=== PATIENT | male | born 1955 | race Caucasian/White ===

== ENCOUNTER 2020-07-14 17:26 | Emergency (ER) | payer OTHER ==
[~2020-07-14] VITALS: Ht 162.5 cm; Wt 88.5 kg
[2020-07-14 17:28] VITALS: BP 160/87
--- NOTE | 2020-07-14 17:30 | ED Lower Extremity ---
General Chief Complaint: Laceration Stated Complaint: LT FOOT LAC Source: patient Exam Limitations: no limitations History of Present Illness Date Seen by Provider: Jul 14, 2020 Time Seen by Provider: 17:30 Initial Comments 64 y/o male presents w (knife) puncture wound of left foot. He was fishing and a fillet knife fell and went through his shoe, puncturing his foot. States that he bled for awhile, now stopped. No other injury. Complain of pain w walking. Tetanus NOT UTD. Allergies and Home Medications Allergies Coded Allergies: No Known Drug Allergies (Unverified , 07/14/20) Home Medications Bacitracin/Polymyxin B Sulfate 28.3 Gm Oint...g., 28.3 GM TP BID Prescribed by: CARMEN WORKMNA on 07/14/201744 Clindamycin HCl 300 Mg Capsule, 300 MG PO TIDWM Prescribed by: CARMEN WORKMAN on 07/14/201744 Patient Home Medication List Home Medication List Reviewed: Yes Review of Systems Constitutional: no symptoms reported Musculoskeletal: No joint pain, No joint swelling, No muscle pain; other (pain left foot) Skin: see HPI, other (puncture wound foot) Psychiatric/Neurological: Denies Numbness, Denies Paresthesia, Denies Weakness Past Zfqznnw-Fpbjrl-Phdbbh Hx Past Med/Social Hx: Reviewed Nursing Past Med/Soc Hx Physical Exam Vital Signs Vital Signs - First Documented 07/14/20 17:28 Temp 37.0 Pulse 74 Resp 18 B/P (MAP) 160/87 (111) Pulse Ox 96 O2 Delivery Room Air Capillary Refill : Height, Weight, BMI Height: '" Weight: lbs. oz. kg; BMI Method: General Appearance: WD/WN, no apparent distress Feet: left foot abrasions/lacerations, left foot limited range of motion (2 to pain), left foot pain, left foot soft tissue tenderness, left foot swelling Neurologic/Psychiatric: alert, normal mood/affect Skin: normal color, warm/dry, other (1cm closed laceration, dorsum of foot without bleeding or DC. No concern of FB, knife removed intact. Small hematoma surrounding.) Progress/Results/Core Measures Results/Orders My Orders Orders - CARMEN WORKMAN DO Tetanus/Diphtheria Inj (Adult) (Tenivac (07/14/20 17:45) Bacitracin Ointment (Bacitracin Ointment (07/14/20 21:00) Medications Given in ED Current Medications Medications Dose Ordered Sig/Albin Route Start Time Stop Time Status Last Admin Dose Admin Tetanus/ Diphtheria Toxoids 0.5 ml ONCE ONCE IM 07/14/20 17:45 07/14/20 17:46 DC 07/14/20 17:42 0.5 ML Vital Signs/I&O 07/14/20 17:28 Temp 37.0 Pulse 74 Resp 18 B/P (MAP) 160/87 (111) Pulse Ox 96 O2 Delivery Room Air Progress Progress Note : Progress Note no need for suturing. Wound cleaned, irrigated and sterile dressing w abx ointment applied. Departure Impression Primary Impression: Laceration of foot, left Qualified Codes: S91.312A - Laceration without foreign body, left foot, initial encounter Disposition: HOME, SELF-CARE Condition: Improved Departure-Patient Inst. Decision time for Depature: 17:44 Patient Instructions: Wound Care Add. Discharge Instructions: See your PCP in 3 days if concern of infection or other problems All discharge instructions reviewed with patient and/or family. Voiced understanding. Scripts Bacitracin/Polymyxin B Sulfate (Polysporin Ointment) 28.3 Gm Oint...g. 28.3 GM TP BID, #1 TUBE Prov: CARMEN WORKMAN DO 07/14/20 Clindamycin HCl (Clindamycin HCl) 300 Mg Capsule 300 MG PO TIDWM, #15 CAP Prov: CARMEN WORKMAN DO 07/14/20 CARMEN WORKMAN DO Jul 14, 2020 17:30
[2020-07-14] MEDS ORDERED: CLIN300C12 PO (17:45)
[2020-07-14] MEDS ORDERED: TETANUS & DIPHTHERIA TOX,ADULT 0.5 ML (TENIVAC) IM ONE (17:45)
[2020-07-14] MEDS ORDERED: BACI28.35 TP (17:45)
[2020-07-14] MEDS ORDERED: BACITRACIN OINTMENT 28 GM TUBE TOP SCH (21:00)
== END 2020-07-14 17:50 | disposition home or self-care (01) ==
LOC: ER FS 17:29
DX: S91.312A Laceration without foreign body, left foot, initial encounter (principal); Z23 Encounter for immunization; W26.0XXA Contact with knife, initial encounter
CPT/HCPCS: 90714

== ENCOUNTER 2020-12-17 09:55 | Outpatient (CLI) | payer MEDICARE, OTHER ==
[~2020-12-17] VITALS: Ht 162.6 cm; Wt 88.0 kg
[~2020-12-17 09:55] MED LIST: BACI28.35 TP; CLIN-144 PO
[2020-12-17] MEDS ORDERED: ACETAMINOPHEN 500 MG TAB (TYLENOL) PO PRN (10:00)
[2020-12-17] MEDS ORDERED: diphenhydrAMINE 50 MG/ML INJ (BENADRYL) IV PRN (10:00)
[2020-12-17] MEDS ORDERED: EPINEPHrine INJECTION 1 MG/ML AMP IM PRN (10:00)
[2020-12-17] MEDS ORDERED: ONDANSETRON 4 MG/2 ML (SDV) Z0FRAN IV PRN (10:00)
[2020-12-17] MEDS ORDERED: CASIRIVIMAB/IMDEVIMAB 1,200 MG in NS (IVPB) 250 ML IV ONE (10:00)
[2020-12-17 10:28] VITALS: BP 133/77
[2020-12-17 11:37] VITALS: BP 120/68
[2020-12-17] MEDS ORDERED: ONDA4TAB11 PO (14:42)
== END 2020-12-17 11:37 | disposition home or self-care (01) ==
LOC: INFUSION 09:55
PROVIDERS: ATTEND Registered Nurse
DX: U07.1 COVID-19 (principal)

== ENCOUNTER 2020-12-17 13:03 | Emergency (ER) | payer MEDICARE, OTHER ==
[~2020-12-17] VITALS: Ht 162.6 cm; Wt 88.0 kg
--- OUTSIDE RECORDS SUMMARY | 2020-12-17 13:09 | XMS REPORT | Clinical Summary ---
Author Author [facility] Organization [facility] Address Unknown Phone Unavailable Care Team Providers Care Lab Engineer Name Role Phone Farnaz Bradshaw MD PCP Tonya Oneill APRN Unavailable Jack Fisher PA-C Unavailable Allergies No known active allergies Medications End Date Status Medication Sig Dispensed Refills Start Date Active hydrocodone-chlorpheniram Take 5 mLs by 140 mL 0 ine (TUSSIONEX) 10-8 mouth every 0 MG/5ML 12 (twelve) suspensionIndications: hours as Cough with fever needed (Severe cough). Additional Information Patient not taking. Reported on 04/09/2020 Active Problems No known active problems Immunizations Name Administration Dates Next Due Anthrax vaccine ([facility] 10/29/2002 registry) [id number],injectable ([facility] 03/14/2009 registry) Hep A, adult 03/01/2002, 09/24/1996 Hep B, Adult 04/11/2003, 03/01/2002 INFLUENZA NOS ([facility] 12/12/2010 REGISTRY) IPV 03/01/2002 Influenza TIV (HX thru 12/14/2008, 01/06/2003 Nov 05 2009) MMR 02/02/1999 Meningococcal 03/01/2002 Polysaccharide Valent-4 (Menomune) PPD Test 03/01/2002 Smallpox (for [facility] 04/05/2002 registry) Tdap 09/19/2016 Typhoid,ViCPs ([facility] 04/11/2003 registry) Typhoid,parenteral,AKD( 09/24/1996 ) ([facility] registry) Yellow Fever ([facility] 11/19/1996 registry) Family History Medical History Relation Name Comments No Known Problems Brother Cancer Brother No Known Problems Daughter No Known Problems Sister No Known Problems Sister No Known Problems Son No Known Problems Son No Known Problems Son Relation Name Status Comments Brother Alive Brother Daughter Alive Father Alive Mother Alive Sister Alive Sister Alive Son Alive Son Alive Son Alive Social History Date Tobacco Use Types Packs/Day Years Used Never Smoker Smokeless Tobacco: Never Used Comments Alcohol Use Standard Drinks/Week Not Asked 0 (1 standard drink = 0.6 o z pure alcohol) Sex Assigned at Date Recorded Not on file Industry Job Start Date Occupation Not on file Not on file Not on file Last Filed Vital Signs Reading Time Taken Comments Vital Sign 120/78 04/09/2020 10:27 AM [employer]OT PEEN OPERATOR Blood Pressure 60 04/09/2020 10:27 AM SHOT PEEN OPERATOR Pulse 36.8 C (98.2 F) 04/09/2020 10:27 AM SHOT PEEN OPERATOR Temperature 12 04/09/2020 10:27 AM SHOT PEEN OPERATOR Respiratory Rate 98% 03/24/2019 3:20 PM SHOT PEEN OPERATOR Oxygen Saturation - - Inhaled Oxygen Concentration 89.8 kg (198 lb) 04/09/2020 10:27 AM SHOT PEEN OPERATOR Weight 162.6 cm (5' 4") 04/09/2020 10:27 AM SHOT PEEN OPERATOR Height 33.99 04/09/2020 10:27 AM SHOT PEEN OPERATOR Body Mass Index Plan of Treatment Health Maintenance Due Date Last Done Comments COVID-19 Vaccine (1) 1967 Zoster Vaccine (1 of 2) 08/19/2005 Pneumo-Vaccine: 65+Yrs (1 08/19/2020 of 1 - PPSV23) Influenza Vaccine (#1) 2020 12/12/2010, 12/14/2008, 01/06/2003 Colon Cancer Screening 08/04/2026 08/04/2016 DTaP,Tdap,and Td Vaccines 09/19/2026 09/19/2016 (2 - Td or Tdap) IPV Vaccines Aged Out 03/01/2002 No longer eligi ble based on patient's age to complete this topic Hepatitis C Screening Completed 04/28/2020, 12/25/2018 HIB Vaccines Aged Out No longer eligible based on patient's age to complete this topic Meningococcal Vaccine Aged Out No longer eligib le based on patient's age to complete this topic Pneumo-Vaccine: Peds (0-5 Aged Out No longer el igible based on patient's age to Yrs) & At-Risk Patients complete this topic (6-64 Yrs) Rotavirus Vaccines Aged Out No longer eligible based on patient's age to complete this topic Results Not on filefrom Last 3 Months Insurance Type Payer Benefit Subscriber ID Effective Phone Address Plan / Dates Group CARLY CARROLL [id number] 2017-P [phone] C/O PGBA [facility] [id number] [facility] [address] [place] [address] Advance Directives For more information, please contact: [phone] Patient Media Associate Explanation Type Date Recorded Advance Directives and Living Will Power of Movie Machine Operator Care Teams Start Date End Date Lab Engineer Relationship Specialty 10/15/12 Farnaz Bradshaw MD PCP - General [facility] [address], [place] [id number] [email or web address] 12/25/18 Tonya Oneill APRN Nurse [address] [place] [address] [email or web address] 12/25/18 Jack Fisher PA-C Family [address] [place] [address] [email or web address]
[2020-12-17] MEDS ORDERED: LACTATED RINGERS 1,000 ML IV SCH (13:45)
[2020-12-17] MEDS ORDERED: ACETAMINOPHEN 500 MG TAB (TYLENOL) PO ONE (13:45)
[2020-12-17] MEDS ORDERED: KETOROLAC 30 MG/ML VIAL IVP ONE (13:45)
[2020-12-17] MEDS ORDERED: ONDANSETRON 4 MG/2 ML (SDV) Z0FRAN IVP ONE (13:45)
--- NOTE | 2020-12-17 13:59 | Diagnostic Imaging Report ---
EXAMINATION: Chest, one view. HISTORY: Cough x5 day, COVID positive. COMPARISON: None available. FINDINGS: Heart size and pulmonary vasculature are normal. The lungs are clear without consolidation, pleural effusion, or pneumothorax. The osseous structures are intact. IMPRESSION: 1. No acute radiographic abnormality in the chest. Dictated by: Dictated on workstation # [id number]
[2020-12-17 14:11] LABS: HEMATOCRIT 45 % (40-54); HEMOGLOBIN 16.1 g/dL (13.3-17.7); MEAN CORPUSCULAR HEMOGLOBIN 30 pg (25-34); MEAN CORPUSCULAR VOLUME 86 fL (80-99); WHITE BLOOD COUNT 7.6 10^3/uL (4.3-11.0)
[2020-12-17 14:12] LABS: BASOPHILS % (AUTO) 0 % (0-10); EOSINOPHILS % (AUTO) 0 % (0-10); LYMPHOCYTES # (AUTO) 0.8 X 10^3 (1.0-4.0); LYMPHOCYTES % (AUTO) 10 % (12-44); MEAN CORPUSCULAR HGB CONC 36 g/dL (32-36); MEAN PLATELET VOLUME 8.6 fL (9.0-12.2); MONOCYTES # (AUTO) 0.7 X 10^3 (0.0-1.0); MONOCYTES % (AUTO) 9 % (0-12); NEUTROPHILS # (AUTO) 6.2 X 10^3 (1.8-7.8); NEUTROPHILS % (AUTO) 81 % (42-75); PLATELET COUNT 245 10^3/uL (130-400)
[2020-12-17 14:33] LABS: POTASSIUM 3.8 MMOL/L (3.6-5.0)
[2020-12-17 14:34] LABS: ALBUMIN 4.4 GM/DL (3.2-4.5); BILIRUBIN,TOTAL 1.1 MG/DL (0.1-1.0); CALCIUM 9.5 MG/DL (8.5-10.1); CREATININE SERUM 1.28 MG/DL (0.60-1.30); TOTAL PROTEIN 7.8 GM/DL (6.4-8.2)
--- NOTE | 2020-12-17 14:36 | ED General ---
General Chief Complaint: COVID19 Suspect/Confirmed Stated Complaint: COUGH; COVID+ Nursing Triage Note: PT TO ROOM FS05 VIA W/C WITH C/O COUGH. PT REPORTS COVID POS TEST ON MONDAY. PT HAD THE OP INFUSION TODAY. PT REPORTS HE HAS NOT EATEN IN X4 DAYS AND HAS NOT BEEN DRINKING ENOUGH. History of Present Illness Date Seen by Provider: Dec 17, 2020 Time Seen by Provider: 14:32 Initial Comments Patient presenting to the emergency department for evaluation of cough congestion arthralgias myalgias fevers chills decreased p.o. intake and feelings of dehydration in the setting of testing positive for Covid 3 days ago and his symptoms starting 4 days ago. He received a monoclonal antibodies this morning. He has been taking Tessalon for his symptoms. He has not been vaccinated for the Covid virus. Patient says that his appetite has diminished significantly and he is able to drink water but he says he has only been drinking 3 bottles of water per day. Patient says that his cough is nonproductive and he has no shortness of breath. His oxygen saturation is in the mid 90s on room air. He is in no acute distress. Allergies and Home Medications Allergies Coded Allergies: No Known Drug Allergies (Unverified , 07/14/20) Patient Home Medication List Home Medication List Reviewed: Yes Bacitracin/Polymyxin B Sulfate (Polysporin Ointment) 28.3 Gm Oint...g., 28.3 GM TP BID Prescribed by: CARMEN WORKMAN on 07/14/201744 Clindamycin HCl (Clindamycin HCl) 300 Mg Capsule, 300 MG PO TIDWM Prescribed by: CARMEN WORKMAN on 07/14/201744 Review of Systems Review of Systems Constitutional: no symptoms reported, chills, fever, malaise, weakness EENTM: nose congestion Respiratory: cough Cardiovascular: no symptoms reported Gastrointestinal: loss of appetite Musculoskeletal: joint pain, muscle pain Skin: no symptoms reported Psychiatric/Neurological: No Symptoms Reported All Other Systems Reviewed Negative Unless Noted: Yes Past Lmivjcf-Kujwbz-Hhppvc Hx Patient Social History Tobacco Use?: No Smoking Status: Never a Smoker Smokeless Tobacco Frequency: Never a User Use of E-Cig and/or Vaping Josué: Never a User Substance use?: No Alcohol Use?: No Pt feels they are or have been: No Seasonal Allergies Seasonal Allergies: No Past Medical History Surgeries: No Respiratory: No Cardiac: No Neurological: No Genitourinary: No Gastrointestinal: No Musculoskeletal: No Endocrine: No HEENT: No Cancer: No Psychosocial: No Integumentary: No Blood Disorders: No Physical Exam Vital Signs Vital Signs - First Documented 12/17/20 13:14 Temp 38.6 Pulse 98 Resp 18 B/P (MAP) 146/90 (108) O2 Delivery Room Air Capillary Refill : Less Than 3 Seconds Height, Weight, BMI Height: '" Weight: lbs. oz. kg; 33.00 BMI Method: General Appearance: No Apparent Distress, WD/WN HEENT: PERRL/EOMI Neck: Supple Respiratory: No Respiratory Distress Cardiovascular: Regular Rate, Rhythm Gastrointestinal: Non Tender, Soft Back: Normal Inspection Extremity: Normal Capillary Refill Neurologic/Psychiatric: Alert, Oriented x3 Skin: Warm/Dry Progress/Results/Core Measures Suspected Sepsis SIRS Temperature: Pulse: 98 Respiratory Rate: 18 Laboratory Tests 12/17/20 14:02: White Blood Count 7.6 Blood Pressure 146 /90 Mean: 108 Laboratory Tests 12/17/20 14:02: Creatinine 1.28, Platelet Count 245, Total Bilirubin 1.1H Results/Orders Lab Results Laboratory Tests Test 12/17/20 14:02 Range/Units White Blood Count 7.6 4.3-11.0 10^3/uL Red Blood Count 5.29 4.30-5.52 10^6/uL Hemoglobin 16.1 13.3-17.7 g/dL Hematocrit 45 40-54 % Mean Corpuscular Volume 86 80-99 fL Mean Corpuscular Hemoglobin 30 25-34 pg Mean Corpuscular Hemoglobin Concent 36 32-36 g/dL Red Cell Distribution Width 12.5 10.0-14.5 % Platelet Count 245 130-400 10^3/uL Mean Platelet Volume 8.6 L 9.0-12.2 fL Immature Granulocyte % (Auto) 0 % Neutrophils (%) (Auto) 81 H 42-75 % Lymphocytes (%) (Auto) 10 L 12-44 % Monocytes (%) (Auto) 9 0-12 % Eosinophils (%) (Auto) 0 0-10 % Basophils (%) (Auto) 0 0-10 % Neutrophils # (Auto) 6.2 1.8-7.8 X 10^3 Lymphocytes # (Auto) 0.8 L 1.0-4.0 X 10^3 Monocytes # (Auto) 0.7 0.0-1.0 X 10^3 Eosinophils # (Auto) 0.0 0.0-0.3 10^3/uL Basophils # (Auto) 0.0 0.0-0.1 10^3/uL Immature Granulocyte # (Auto) 0.0 0.0-0.1 10^3/uL Sodium Level 132 L 135-145 MMOL/L Potassium Level 3.8 3.6-5.0 MMOL/L Chloride Level 94 L 98-107 MMOL/L Carbon Dioxide Level 25 21-32 MMOL/L Anion Gap 13 5-14 MMOL/L Blood Urea Nitrogen 15 7-18 MG/DL Creatinine 1.28 0.60-1.30 MG/DL Estimat Glomerular Filtration Rate 56 BUN/Creatinine Ratio 12 Glucose Level 158 H 70-105 MG/DL Calcium Level 9.5 8.5-10.1 MG/DL Corrected Calcium 9.2 8.5-10.1 MG/DL Total Bilirubin 1.1 H 0.1-1.0 MG/DL Aspartate Amino Transf (AST/SGOT) 59 H 5-34 U/L Alanine Aminotransferase (ALT/SGPT) 38 0-55 U/L Alkaline Phosphatase 65 40-136 U/L Total Protein 7.8 6.4-8.2 GM/DL Albumin 4.4 3.2-4.5 GM/DL My Orders Orders - AMAN REED DO Cbc With Automated Diff (12/17/20 13:41) Comprehensive Metabolic Panel (12/17/20 13:41) Iv/Invasive Line Insertion .IV start (12/17/20 13:41) Chest 1 View Ap/Pa Only (12/17/20 13:41) Lactated Ringers (Lr 1000 Ml Iv Solution (12/17/20 13:45) Ondansetron Injection (Zofran Injectio (12/17/20 13:45) Ketorolac Injection (Toradol Injection) (12/17/20 13:45) Acetaminophen Tablet (Tylenol Tablet) (12/17/20 13:45) Medications Given in ED Current Medications Medications Dose Ordered Sig/Albin Route Start Time Stop Time Status Last Admin Dose Admin Acetaminophen 1,000 mg ONCE ONCE PO 12/17/20 13:45 12/17/20 13:46 DC 12/17/20 13:53 1,000 MG Ketorolac Tromethamine 15 mg ONCE ONCE IVP 12/17/20 13:45 12/17/20 13:46 DC 12/17/20 13:54 15 MG Ondansetron HCl 4 mg ONCE ONCE IVP 12/17/20 13:45 12/17/20 13:46 DC 12/17/20 13:54 4 MG Vital Signs/I&O 12/17/20 12/17/20 12/17/20 13:14 13:14 13:53 Temp 38.6 38.3 Pulse 98 Resp 18 B/P (MAP) 146/90 (108) O2 Delivery Room Air Room Air Capillary Refill : Less Than 3 Seconds Blood Pressure Mean: 108 Progress Note : Progress Note Patient appears to not feel well but he is nontoxic with normal vital signs other than the fever. His chest x-ray is normal and he has normal oxygen saturation. Patient feels better after IV fluids and treatment here in emergency department and his vital signs are now normal. Patient feels well and would like to go home and given there is no inpatient criteria met I will discharge him in stable condition but told him that he certainly could get worse and that he needs to monitor his oxygen saturation and symptoms as he may require inpatient hospitalization if his oxygen saturation is below 92% or if he is developing worsening shortness of breath or other concerns. Patient told to follow with his primary care provider within the next 3 to 4 days for repeat check of his vital signs and to come back to emergency department sooner as discussed above. Patient aware and agreeable with plan and verbalized understanding of above instructions. Departure Impression Primary Impression: COVID-19 virus infection Additional Impression: Decreased oral intake Disposition: 01 HOME, SELF-CARE Condition: Stable Departure-Patient Inst. Referrals: NO,LOCAL PHYSICIAN (PCP/Family) Primary Care Physician Patient Instructions: COVID-19 ED Add. Discharge Instructions: Take tylenol and ibuprofen for pain and fever. Drink plenty of fluids. Check oxygen at home, if consistently less than 92% come back to the ED. All discharge instructions reviewed with patient and/or family. Voiced understanding. Scripts Ondansetron (Ondansetron Odt) 4 Mg Tab.rapdis 4 MG PO Q6H PRN for NAUSEA/VOMITING, #16 TAB 0 Refills Prov: AMAN REED DO 12/17/20 AMAN REED DO Dec 17, 2020 14:36
[2020-12-17] MEDS ORDERED: ONDA4TAB11 PO (14:42)
[2020-12-17 14:51] VITALS: BP 131/72
== END 2020-12-17 14:51 | disposition home or self-care (01) ==
LOC: EDUNIT# 13:03 → ER FS 13:06
DX: U07.1 COVID-19 (principal); R63.0 Anorexia
CPT/HCPCS: 36415; 71045; 80053; 85025

== ENCOUNTER 2020-12-18 16:52 | Inpatient (IN) | payer MEDICARE, OTHER ==
[~2020-12-18] VITALS: Ht 162.6 cm; Wt 89.7 kg
[~2020-12-18 16:52] MED LIST changes: +ONDA4TAB11 PO
[2020-12-18 17:33] LABS: BASOPHILS % (AUTO) 0 % (0-10); EOSINOPHILS % (AUTO) 0 % (0-10); HEMATOCRIT 42 % (40-54); HEMOGLOBIN 14.5 g/dL (13.3-17.7); LYMPHOCYTES # (AUTO) 0.7 10^3/uL (1.0-4.0); LYMPHOCYTES % (AUTO) 13 % (12-44); MEAN CORPUSCULAR HEMOGLOBIN 30 pg (25-34); MEAN CORPUSCULAR HGB CONC 35 g/dL (32-36); MEAN CORPUSCULAR VOLUME 87 fL (80-99); MEAN PLATELET VOLUME 8.6 fL (9.0-12.2); MONOCYTES # (AUTO) 0.5 10^3/uL (0.0-1.0); MONOCYTES % (AUTO) 9 % (0-12); NEUTROPHILS # (AUTO) 4.4 10^3/uL (1.8-7.8); NEUTROPHILS % (AUTO) 78 % (42-75); PLATELET COUNT 195 10^3/uL (130-400); WHITE BLOOD COUNT 5.7 10^3/uL (4.3-11.0)
[2020-12-18 17:44] LABS: ALBUMIN 3.7 GM/DL (3.2-4.5); POTASSIUM 3.8 MMOL/L (3.6-5.0)
[2020-12-18 17:45] LABS: CALCIUM 8.9 MG/DL (8.5-10.1)
[2020-12-18] MEDS ORDERED: LACTATED RINGERS 1,000 ML IV ONE (17:45)
[2020-12-18 17:46] LABS: TOTAL PROTEIN 6.7 GM/DL (6.4-8.2)
[2020-12-18 17:48] LABS: BILIRUBIN,TOTAL 0.9 MG/DL (0.1-1.0); FIBRIN DEGRADATION PRODUCTS 1.22 UG/ML (0.00-0.49); INR 1.1 (0.8-1.4); PROTHROMBIN TIME PATIENT 14.3 SEC (12.2-14.7)
[2020-12-18 17:50] LABS: CREATININE SERUM 1.22 MG/DL (0.60-1.30)
--- NOTE | 2020-12-18 17:57 | Diagnostic Imaging Report ---
EXAMINATION: Chest 1 view. HISTORY: Sepsis. COMPARISON: 12/17/2020. FINDINGS: There are new patchy airspace opacities in the mid and lower zones. No pleural effusion or pneumothorax. Heart size is normal. IMPRESSION: New mild patchy airspace opacities in the mid and lower zones consistent with pneumonia. Dictated by: Dictated on workstation # [id number]
[2020-12-18 18:13] LABS: BILIRUBIN,URINE NEGATIVE (NEGATIVE); CLARITY,URINE CLEAR; COLOR,URINE YELLOW; GLUCOSE, URINE (UA) NEGATIVE (NEGATIVE); KETONES,URINE 2+ (NEGATIVE); LEUKOCYTE ESTERASE ,URINE NEGATIVE (NEGATIVE); NITRITE,URINE NEGATIVE (NEGATIVE); PROTEIN,URINE 2+ (NEGATIVE)
[2020-12-18 18:22] LABS: BACTERIA,URINE FEW /HPF; SQUAMOUS EPITHELIAL CELL,UR RARE /HPF; WBC,URINE 0-2 /HPF
[2020-12-18] MEDS ORDERED: NS 100 ML (IVPB) BAG IV ONE (18:30)
[2020-12-18] MEDS ORDERED: IOHEXOL 350 MG/ML 100 ML (OMNIPAQUE 350) VIAL IV ONE (18:30)
[2020-12-18] MEDS ORDERED: HOLD METFORMIN - RECEIVED CONTRAST 20 ML VIAL IV SCH (18:30)
[2020-12-18] MEDS ORDERED: cefTRIAXone 1 GM PRE-MIX 50 ML IV STA (18:35)
--- NOTE | 2020-12-18 18:41 | Diagnostic Imaging Report ---
PROCEDURE: CT angiography of the chest with contrast. TECHNIQUE: Multiple contiguous axial images were obtained through the chest after uneventful bolus administration of intravenous contrast. 3D reconstructed CTA MIP acquisitions were also performed. Auto Exposure Controls were utilized during the CT exam to meet ALARA standards for radiation dose reduction. INDICATION: Covid positive. Evaluate for pulmonary embolism. COMPARISON: Correlation with a chest radiograph from earlier the same day. FINDINGS: The pulmonary arteries demonstrate no findings of a filling defect to suggest pulmonary embolism. There are no CT angiographic findings of right ventricular strain. Thoracic aorta demonstrates no dissection or aneurysm. Heart is appropriate. There is no pericardial collection. There are extensive largely groundglass densities and peripheral alveolar opacities within the lungs compatible with history of Covid 19 pneumonia. There is no significant effusion or evidence of a pneumothorax. There are mildly prominent bilateral hilar lymph nodes. The upper abdomen demonstrates no acute process. There are no rib fractures. Alignment of the thoracic spine is appropriate and vertebral body heights are maintained. IMPRESSION: 1. No CT angiography evidence of pulmonary embolism. 2. Aorta is unremarkable. 3. Diffuse largely peripheral groundglass opacity alveolar infiltrates throughout the lungs. Pattern and appearance is compatible with patient's history of Covid 19 pneumonia. Dictated by: Dictated on workstation # [id number]
--- NOTE | 2020-12-18 18:46 | ED General ---
General Chief Complaint: COVID19 Suspect/Confirmed Stated Complaint: LOW O2 IN 80'S/SOA/COVID POSITIVE Nursing Triage Note: PT AMB TO RM 9 W REPORTS OF COVID + TEST ON 12/14/20 AND S/SX SINCE 12/13/20. PT C/O COUGH, SOA, DIARRHEA, INABILITY TO EAT AND DRINK, POOR FOCUS/MEMORY, AND POOR BALANCE WHICH CAUSED A FALL W/O INJURIES YESTERDAY. REPORTS HE IS HOME ALONE AND HAS ONLY CONSUMED AT MOST 2 BOTTLES OF WATER/DAY AND CANT EAT D/T ALTERED TASTE. PT GOT REGENERON INFUSION YESTERDAY. PT A&OX4, DENIES PAIN. Source of Information: Patient, Old Records Exam Limitations: No Limitations History of Present Illness Date Seen by Provider: Dec 18, 2020 Time Seen by Provider: 16:55 Initial Comments This 65-year-old gentleman presents to the emergency room with recent diagnosis of COVID-19, hypoxia, shortness of breath, cough, inability to eat and drink, and confusion or difficulty focusing. He was diagnosed at a walk-in clinic in [place] on December 14. He has been feeling ill since December 13. He was not vaccinated for COVID-19. He did receive a Regeneron monoclonal antibody infusion yesterday. He then presented to the emergency department in [place] yesterday and received IV fluids. His respiratory status was stable at that time. On arrival to the emergency room he has oxygen saturations as low as 85% on room air and is dyspneic. It did take several minutes for him to resuscitate his oxygen saturations on nasal cannula at 4 L/min. Patient has not been taking any other medications aside from Tessalon Perles for his cough. He denies any other health problems and takes no daily medications. He states he has not been able to eat or drink because he has no appetite and everything tastes intensely of salt. Allergies and Home Medications Allergies Coded Allergies: No Known Drug Allergies (Unverified , 07/14/20) Patient Home Medication List Home Medication List Reviewed: Yes Bacitracin/Polymyxin B Sulfate (Polysporin Ointment) 28.3 Gm Oint...g., 28.3 GM TP BID Prescribed by: CARMEN WORKMAN on 07/14/20 162 Ondansetron (Ondansetron Odt) 4 Mg Tab.rapdis, 4 MG PO Q6H PRN for NAUSEA/VOMITING Prescribed by: AMAN REED on 12/17/20 1442 Discontinued Medications Clindamycin HCl (Clindamycin HCl) 300 Mg Capsule, 300 MG PO TIDWM Prescribed by: CARMEN WORKMAN on 07/14/20 1745 Review of Systems Review of Systems Constitutional: no symptoms reported EENTM: no symptoms reported Respiratory: see HPI Cardiovascular: no symptoms reported Gastrointestinal: no symptoms reported Genitourinary: no symptoms reported Musculoskeletal: no symptoms reported Skin: no symptoms reported Psychiatric/Neurological: See HPI Hematologic/Lymphatic: No Symptoms Reported Immunological/Allergic: no symptoms reported Past Ilzcwnr-Cwgdbr-Zyzlic Hx Patient Social History Tobacco Use?: Yes Tobacco type used: Cigars Smoking Status: Light Tobacco Smoker Use of E-Cig and/or Vaping dev: No Substance use?: No Alcohol Use?: No Immunizations Up To Date First/Initial COVID19 Vaccinat: NONE Second COVID19 Vaccination Jeronimo: NONE COVID19 Vaccine Drop Forger Helper: NONE Seasonal Allergies Seasonal Allergies: No Past Medical History Surgery/Hospitalization HX: SX: RIGHT KNEE SCOPE Surgeries: Yes Orthopedic Respiratory: No Cardiac: No Neurological: No Genitourinary: No Gastrointestinal: No Musculoskeletal: No Endocrine: No HEENT: No Cancer: No Psychosocial: No Integumentary: No Blood Disorders: No Physical Exam Vital Signs Vital Signs - First Documented Capillary Refill : Less Than 3 Seconds Height, Weight, BMI Height: '" Weight: lbs. oz. kg; 33.00 BMI Method: General Appearance: WD/WN, Mild Distress, Obese HEENT: PERRL/EOMI, Normal ENT Inspection, Other (Mucous membranes dry) Neck: Normal Inspection; No JVD Respiratory: Lungs Clear, Normal Breath Sounds, No Accessory Muscle Use, Other (Mild tachypnea) Cardiovascular: Regular Rate, Rhythm, No Edema, No Murmur Gastrointestinal: Normal Bowel Sounds, Non Tender, Soft Extremity: Normal Inspection, No Calf Tenderness, No Pedal Edema Neurologic/Psychiatric: Alert, No Motor/Sensory Deficits, Normal Mood/Affect, fire regulator II-XII Norm as Tested, Other (Mild confusion or dulled mentation) Skin: Normal Color, Warm/Dry Focused Exam Lactate Level 12/18/20 17:18: Lactic Acid Level 1.13 Lactic Acid Level Laboratory Tests Test 12/18/20 17:18 Lactic Acid Level 1.13 MMOL/L (0.50-2.00) Progress/Results/Core Measures Suspected Sepsis SIRS Temperature: Pulse: 82 Respiratory Rate: 30 Laboratory Tests 12/18/20 17:18: White Blood Count 5.7 Blood Pressure 133 /79 Mean: 97 12/18/20 17:18: Lactic Acid Level 1.13 Laboratory Tests 12/18/20 17:18: Creatinine 1.22, INR Comment 1.1, Platelet Count 195, Total Bilirubin 0.9 Results/Orders Lab Results Laboratory Tests Test 12/18/20 17:18 12/18/20 18:00 12/18/20 18:39 Range/Units White Blood Count 5.7 4.3-11.0 10^3/uL Red Blood Count 4.77 4.30-5.52 10^6/uL Hemoglobin 14.5 13.3-17.7 g/dL Hematocrit 42 40-54 % Mean Corpuscular Volume 87 80-99 fL Mean Corpuscular Hemoglobin 30 25-34 pg Mean Corpuscular Hemoglobin Concent 35 32-36 g/dL Red Cell Distribution Width 12.2 10.0-14.5 % Platelet Count 195 130-400 10^3/uL Mean Platelet Volume 8.6 L 9.0-12.2 fL Immature Granulocyte % (Auto) 0 % Neutrophils (%) (Auto) 78 H 42-75 % Lymphocytes (%) (Auto) 13 12-44 % Monocytes (%) (Auto) 9 0-12 % Eosinophils (%) (Auto) 0 0-10 % Basophils (%) (Auto) 0 0-10 % Neutrophils # (Auto) 4.4 1.8-7.8 10^3/uL Lymphocytes # (Auto) 0.7 L 1.0-4.0 10^3/uL Monocytes # (Auto) 0.5 0.0-1.0 10^3/uL Eosinophils # (Auto) 0.0 0.0-0.3 10^3/uL Basophils # (Auto) 0.0 0.0-0.1 10^3/uL Immature Granulocyte # (Auto) 0.0 0.0-0.1 10^3/uL Prothrombin Time 14.3 12.2-14.7 SEC INR Comment 1.1 0.8-1.4 Activated Partial Thromboplast Time 37 H 24-35 SEC D-Dimer 1.22 H 0.00-0.49 UG/ML Sodium Level 132 L 135-145 MMOL/L Potassium Level 3.8 3.6-5.0 MMOL/L Chloride Level 95 L 98-107 MMOL/L Carbon Dioxide Level 24 21-32 MMOL/L Anion Gap 13 5-14 MMOL/L Blood Urea Nitrogen 15 7-18 MG/DL Creatinine 1.22 0.60-1.30 MG/DL Estimat Glomerular Filtration Rate 60 BUN/Creatinine Ratio 12 Glucose Level 137 H 70-105 MG/DL Lactic Acid Level 1.13 0.50-2.00 MMOL/L Calcium Level 8.9 8.5-10.1 MG/DL Corrected Calcium 9.1 8.5-10.1 MG/DL Magnesium Level 2.0 1.6-2.4 MG/DL Total Bilirubin 0.9 0.1-1.0 MG/DL Aspartate Amino Transf (AST/SGOT) 90 H 5-34 U/L Alanine Aminotransferase (ALT/SGPT) 47 0-55 U/L Alkaline Phosphatase 48 40-136 U/L C-Reactive Protein High Sensitivity 15.30 H 0.00-0.50 MG/DL Total Protein 6.7 6.4-8.2 GM/DL Albumin 3.7 3.2-4.5 GM/DL Procalcitonin 0.92 H <0.10 NG/ML Urine Color YELLOW Urine Clarity CLEAR Urine pH 6.0 5-9 Urine Specific [place] >=1.030 1.016-1.022 Urine Protein 2+ H NEGATIVE Urine Glucose (UA) NEGATIVE NEGATIVE Urine Ketones 2+ H NEGATIVE Urine Nitrite NEGATIVE NEGATIVE Urine Bilirubin NEGATIVE NEGATIVE Urine Urobilinogen 1.0 < = 1.0 MG/DL Urine Leukocyte Esterase NEGATIVE NEGATIVE Urine RBC (Auto) 1+ H NEGATIVE Urine RBC NONE /HPF Urine WBC 0-2 /HPF Urine Squamous Epithelial Cells RARE /HPF Urine Crystals NONE /LPF Urine Bacteria FEW H /HPF Urine Casts NONE /LPF Urine Mucus NEGATIVE /LPF Urine Culture Indicated YES Lab Scanned Report Referred Lab Report [id number] Micro Results Microbiology 12/18/20 Urine Culture - Final, Complete NO GROWTH 12/18/20 Blood Culture - Preliminary, Resulted No growth 12/18/20 Blood Culture - Preliminary, Resulted No growth My Orders Orders - MOOSE PRATT T MD Cbc With Automated Diff (12/18/20 16:55) Comprehensive Metabolic Panel (12/18/20 16:55) Blood Culture (12/18/20 16:55) Urinalysis (12/18/20 16:55) Urine Culture (12/18/20 16:55) Protime With Inr (12/18/20 16:55) Partial Thromboplastin Time (12/18/20 16:55) Chest 1 View, Ap/Pa Only (12/18/20 16:55) Ed Iv/Invasive Line Start (12/18/20 16:55) Ed Iv/Invasive Line Start (12/18/20 16:55) Vital Signs Adult Sepsis Patie Q15M (12/18/20 16:55) O2 (12/18/20 16:55) Remove Rings In Anticipation O (12/18/20 16:55) Lactic Acid Analyzer (12/18/20 16:55) Hs C Reactive Protein (12/18/20 16:55) Fibrin Degradation Products (12/18/20 16:55) Procalcitonin (Pct) (12/18/20 16:55) Covid-19 External Lab Results (12/18/20 17:35) Dexamethasone Injection (Decadron Inje (12/18/20 17:45) Ed Iv/Invasive Line Start (12/18/20 17:38) Lactated Ringers (Lr 1000 Ml Iv Solution (12/18/20 17:45) Magnesium (12/18/20 17:38) Ct Angio Chest W (12/18/20 17:56) Medications Given in ED Vital Signs/I&O 12/18/20 12/18/20 12/18/20 16:52 16:52 16:53 Temp 38.0 Pulse 82 Resp 30 B/P (MAP) 133/79 (97) Pulse Ox 97 97 O2 Delivery Nasal Cannula Room Air Nasal Cannula O2 Flow Rate 2.00 2.00 Capillary Refill : Less Than 3 Seconds Blood Pressure Mean: 97 Progress Note : Time: 18:47 Progress Note Patient was stable on nasal cannula at 4 L/min. IV fluids were initiated. D- dimer was elevated and CT angiogram was obtained. Pneumonia was noted but no pulmonary embolus. Given the CRP, procalcitonin, and imaging results, antibiotics were initiated after discussing with Dr. Doe. Rocephin was given in the ER. I discussed CODE STATUS with the patient and he requests a full CODE STATUS. Diagnostic Imaging Diagonstic Imaging: Xray Plain Films/CT/US/NM/MRI: chest Comments Chest x-ray viewed by me and report reviewed. See report below: NAME: CARMEN ROUSE [facility] REC#: [id number] PT STATUS: REG ER : 1955 PHYSICIAN: MOOSE PRATT MD ADMIT DATE: 12/18/20/ER Signed Date of Exam:12/18/20 CHEST 1 VIEW, AP/PA ONLY EXAMINATION: Chest 1 view. HISTORY: Sepsis. COMPARISON: 12/17/2020. FINDINGS: There are new patchy airspace opacities in the mid and lower zones. No pleural effusion or pneumothorax. Heart size is normal. IMPRESSION: New mild patchy airspace opacities in the mid and lower zones consistent with pneumonia. Dictated by: Dictated on workstation # [id number] Dict: 12/18/20 1753 Trans: 12/18/201814 [facility] [id number] Interpreted by: TAO KAMARA MD Electronically signed by: TAO KAMARA MD 12/18/201814 Diagonstic Imaging: CT Plain Films/CT/US/NM/MRI: chest Comments CT angiogram chest viewed by me and report reviewed. See report below: NAME: CARMEN ROUSE [facility] REC#: [id number] PT STATUS: REG ER : 1955 PHYSICIAN: MOOSE PRATT MD ADMIT DATE: 12/18/20/ER Signed Date of Exam:12/18/20 CT ANGIO CHEST W PROCEDURE: CT angiography of the chest with contrast. TECHNIQUE: Multiple contiguous axial images were obtained through the chest after uneventful bolus administration of intravenous contrast. 3D reconstructed CTA MIP acquisitions were also performed. Auto Exposure Controls were utilized during the CT exam to meet ALARA standards for radiation dose reduction. INDICATION: Covid positive. Evaluate for pulmonary embolism. COMPARISON: Correlation with a chest radiograph from earlier the same day. FINDINGS: The pulmonary arteries demonstrate no findings of a filling defect to suggest pulmonary embolism. There are no CT angiographic findings of right ventricular strain. Thoracic aorta demonstrates no dissection or aneurysm. Heart is appropriate. There is no pericardial collection. There are extensive largely groundglass densities and peripheral alveolar opacities within the lungs compatible with history of Covid 19 pneumonia. There is no significant effusion or evidence of a pneumothorax. There are mildly prominent bilateral hilar lymph nodes. The upper abdomen demonstrates no acute process. There are no rib fractures. Alignment of the thoracic spine is appropriate and vertebral body heights are maintained. IMPRESSION: 1. No CT angiography evidence of pulmonary embolism. 2. Aorta is unremarkable. 3. Diffuse largely peripheral groundglass opacity alveolar infiltrates throughout the lungs. Pattern and appearance is compatible with patient's history of Covid 19 pneumonia. Dictated by: Dictated on workstation # [id number] Dict: 12/18/201835 Trans: 12/18/201841 [facility] [id number] Interpreted by: VANESSA MARIE MD Electronically signed by: VANESSA MARIE MD 12/18/201841 Departure Communication (Admissions) Time/Spoke to Admitting Phy: 18:13 Dr. Doe Impression Primary Impression: Pneumonia due to COVID-19 virus Additional Impressions: Hypoxia Confusion Disposition: ADMITTED INPATIENT Condition: Improved Admissions Decision to Admit Reason: Admit from ER (General) Decision to Admit/Date: Dec 18, 2020 Time/Decision to Admit Time: 16:55 Departure-Patient Inst. Referrals: NO,LOCAL PHYSICIAN (PCP/Family) Primary Care Physician MOOSE PRATT MD Dec 18, 2020 18:46
[2020-12-18 19:49] VITALS: BP 120/66
[2020-12-18] MEDS ORDERED: AZITHROMYCIN 500 MG/NS 250 ML IVPB IV ONE ×2 (22:00)
[2020-12-18] MEDS ORDERED: ONDANSETRON 4 MG/2 ML (SDV) Z0FRAN IV PRN (22:00)
[2020-12-18] MEDS ORDERED: ACETAMINOPHEN 650 MG SUPP (TYLENOL) PR PRN (22:00)
[2020-12-18] MEDS: LACTATED RINGERS 1,000 ML IV SCH (22:05)
[2020-12-18] MEDS: ACETAMINOPHEN 325 MG TABLET PO PRN (22:06)
[2020-12-18] MEDS: BENZONATATE 100 MG (TESSALON) CAPSULE PO PRN (22:06)
[2020-12-18] MEDS: ENOXAPARIN 40 MG/0.4 ML (LOVENOX) SYR SC SCH (22:19)
[2020-12-18] MEDS ORDERED: RT-ALBUTEROL HFA 8.5 GM INHALER IH PRN (22:30)
[2020-12-18] MEDS: guaiFENesin SYRUP 100 MG/5 ML 10 ML (ROBITUSSIN SF) PO PRN (23:22)
[2020-12-18 23:23] VITALS: BP 112/72
[2020-12-19] VITALS (7 sets, daily range): BP systolic 105–136; BP diastolic 68–79
[2020-12-19] MEDS: RT-ALBUTEROL HFA 8.5 GM INHALER IH SCH ×4 (03:42→22:46)
[2020-12-19] MEDS: guaiFENesin SYRUP 100 MG/5 ML 10 ML (ROBITUSSIN SF) PO PRN ×4 (03:51→23:13)
[2020-12-19] MEDS: LACTATED RINGERS 1,000 ML IV SCH ×4 (03:51→23:24)
[2020-12-19 06:50] LABS: BASOPHILS % (AUTO) 0 % (0-10); EOSINOPHILS % (AUTO) 0 % (0-10); HEMATOCRIT 40 % (40-54); HEMOGLOBIN 13.7 g/dL (13.3-17.7); LYMPHOCYTES # (AUTO) 0.6 10^3/uL (1.0-4.0); LYMPHOCYTES % (AUTO) 13 % (12-44); MEAN CORPUSCULAR HEMOGLOBIN 30 pg (25-34); MEAN CORPUSCULAR HGB CONC 35 g/dL (32-36); MEAN CORPUSCULAR VOLUME 88 fL (80-99); MONOCYTES # (AUTO) 0.3 10^3/uL (0.0-1.0); MONOCYTES % (AUTO) 8 % (0-12); NEUTROPHILS # (AUTO) 3.4 10^3/uL (1.8-7.8); NEUTROPHILS % (AUTO) 79 % (42-75); PLATELET COUNT 187 10^3/uL (130-400); WHITE BLOOD COUNT 4.3 10^3/uL (4.3-11.0)
[2020-12-19 07:00] LABS: POTASSIUM 3.8 MMOL/L (3.6-5.0)
[2020-12-19 07:01] LABS: CALCIUM 8.8 MG/DL (8.5-10.1)
[2020-12-19 07:06] LABS: CREATININE SERUM 1.14 MG/DL (0.60-1.30)
--- NOTE | 2020-12-19 07:16 | Diagnostic Imaging Report ---
Indication: Cough, COVID patient. Compared: 12/18/2020 Findings: Severe vague patchy bilateral pulmonary opacities most notable right perihilar and right upper lobe increased in conspicuity, suspect for infectious etiology and while nonspecific are compatible with the provided history of COVID. No effusion, pneumothorax or overt failure pattern, upper limits heart size stable. Impression: Vague patchy bilateral infiltrates slightly increased in radiographic density and conspicuity consistent with a mild progression of nonspecific infectious etiologies. Dictated by: Dictated on workstation # [id number]
[2020-12-19] MEDS: ACETAMINOPHEN 325 MG TABLET PO PRN (08:53)
[2020-12-19] MEDS: BENZONATATE 100 MG (TESSALON) CAPSULE PO PRN ×2 (09:03→18:17)
[2020-12-19] MEDS ORDERED: WATER (STERILE) FOR INJECTION 10 ML ONE (17:11)
[2020-12-19] MEDS: cefTRIAXone 1,000 MG VIAL IM SCH (17:20)
--- NOTE | 2020-12-19 18:51 | History & Physical-Hospitalist ---
History of Present Illness HPI/Chief Complaint Bryce Nguyen is a 65 year old male who was admitted with COVID-19. He was having shortness of breath and cough. He has also been having fevers. He has not been eating because "everything tastes like salt". He did not receive the COVID vaccine. He has never had COVID before. His symptoms started 12/13 with cough. He tested positive 12/14. He received the monoclonal antibody infusion 12/17. Source: patient Exam Limitations: no limitations Date Seen 12/19/20 Time Seen by a Provider: 12:00 Attending Physician Serenity Wilson MD PCP No,Local Physician Referring Physician Date of Admission Dec 18, 2020 at 18:39 Home Medications & Allergies Home Medications Reviewed patient Home Medication Reconciliation performed by pharmacy medication reconciliations cathodic protection technician and/or nursing. Patients Allergies have been reviewed. Allergies Allergies Coded Allergies No Known Drug Allergies (Unverified07/14/20) Past Wxnjjaw-Pjvafw-Qgcxrz Hx Patient Social History Tobacco Use?: Yes Tobacco type used: Cigars Smoking Status: Light Tobacco Smoker Use of E-Cig and/or Vaping dev: No Substance use?: No Alcohol Use?: Yes Alcohol type: Beer, Hard Liquor Alcohol Frequency: Rarely Immunizations Up To Date First/Initial COVID19 Vaccinat: NONE Second COVID19 Vaccination Jeronimo: NONE Tetanus Booster (TDap): Less Than 5 Years Seasonal Allergies Seasonal Allergies: No Current Status Advance Directives: No Communicates: Verbally Primary Language: Bulgarian Preferred Spoken Language: Bulgarian Is interpretation needed?: No Sensory deficits: Vision impairment Implanted or Applied Medical D: None Past Medical History Surgeries: Orthopedic Blood Disorders: No Family Medical History No Pertinent Family Hx Review of Systems Constitutional: fever EENTM: no symptoms reported Respiratory: cough, short of breath Cardiovascular: no symptoms reported Gastrointestinal: diarrhea Genitourinary: no symptoms reported Musculoskeletal: no symptoms reported Skin: no symptoms reported Psychiatric/Neurological: No Symptoms Reported Physical Exam Physical Exam Vital Signs Vital Signs - First Documented Capillary Refill : Less Than 3 Seconds Height, Weight, BMI Height: '" Weight: lbs. oz. kg; 33.70 BMI Method: General Appearance: No Apparent Distress, Obese HEENT: PERRL/EOMI, Pharynx Normal Neck: Normal Inspection, Supple Respiratory: Lungs Clear, Normal Breath Sounds, No Respiratory Distress Cardiovascular: Regular Rate, Rhythm, No Edema, No Murmur Gastrointestinal: Normal Bowel Sounds, Non Tender, Soft Extremity: Normal Inspection, Non Tender, No Pedal Edema Neurologic/Psychiatric: Alert, Oriented x3, No Motor/Sensory Deficits, Normal Mood/Affect Skin: Normal Color, Warm/Dry Results Results/Procedures Labs Laboratory Tests 12/18/20 17:18 12/19/20 06:34 Patient resulted labs reviewed. Imaging: Reviewed Imaging Report Assessment/Plan Admission Diagnosis Acute respiratory failure due to COVID-19 Admission Status: Inpatient Order (span 2 midnights) Reason for Inpatient Admission: Respiratory failure Assessment and Plan Acute respiratory failure due to COVID-19 COVID+ at outside facility 12/14 s/p MAB infusion 12/17 Requiring supplemental oxygen, 2 L nasal cannula Started on Decadron Procalcitonin elevated Started on Rocephin and Azithromycin D-dimer mildly elevated CT without evidence of PE Prophylactic Lovenox Obesity Clinically significant, no acute management needs DVT prophylaxis: Lovenox Diagnosis/Problems Diagnosis/Problems (1) Pneumonia due to COVID-19 virus Status: Acute (2) Acute respiratory failure due to COVID-19 Status: Acute (3) Secondary bacterial pneumonia Status: Acute (4) Elevated d-dimer Status: Acute (5) Obesity Status: Chronic SERENITY WILSON MD Dec 19, 2020 18:51
[2020-12-19] MEDS: AZITHROMYCIN 250 MG/NS 250 ML IVPB IV SCH ×2 (20:27)
[2020-12-19] MEDS: ENOXAPARIN 40 MG/0.4 ML (LOVENOX) SYR SC SCH (20:27)
[2020-12-20] VITALS (7 sets, daily range): BP systolic 100–127; BP diastolic 66–79
[2020-12-20] MEDS: BENZONATATE 100 MG (TESSALON) CAPSULE PO PRN ×3 (01:39→19:26)
[2020-12-20] MEDS: RT-ALBUTEROL HFA 8.5 GM INHALER IH SCH ×4 (02:36→21:22)
[2020-12-20] MEDS: guaiFENesin SYRUP 100 MG/5 ML 10 ML (ROBITUSSIN SF) PO PRN ×4 (04:59→19:27)
[2020-12-20] MEDS: LACTATED RINGERS 1,000 ML IV SCH ×3 (05:07→20:33)
[2020-12-20] MEDS: inSUlin ASPART (NovoLOG) 1 UNIT/0.01 ML (CHARGE PER UNIT) SC SCH ×3 (11:35→20:56)
--- NOTE | 2020-12-20 11:46 | Progress Note - Hospitalist ---
Subjective HPI/CC On Admission Date Seen by Provider: Dec 20, 2020 Time Seen by Provider: 11:00 Bryce Nguyen is a 65 year old male who was admitted with COVID-19. He was having shortness of breath and cough. He has also been having fevers. He has not been eating because "everything tastes like salt". He did not receive the COVID vaccine. He has never had COVID before. His symptoms started 12/13 with cough. He tested positive 12/14. He received the monoclonal antibody infusion 12/17. Subjective/Events-last exam He is doing better today. He still has a cough. He has not been able to eat much due to "everything still tastes like salt". Focused Exam Lactate Level 12/18/20 17:18: Lactic Acid Level 1.13 Objective Exam Vital Signs Vital Signs Date Time Temp Pulse Resp B/P (MAP) Pulse Ox O2 Delivery O2 Flow Rate FiO2 12/20/20 08:01 36.1 63 22 100/66 (77) 93 Nasal Cannula 2.00 Capillary Refill : Less Than 3 Seconds General Appearance: No Apparent Distress, WD/WN HEENT: PERRL/EOMI, Pharynx Normal Neck: Normal Inspection, Supple Respiratory: Lungs Clear, Normal Breath Sounds, No Respiratory Distress Cardiovascular: Regular Rate, Rhythm, No Edema, No Murmur Gastrointestinal: Normal Bowel Sounds, Non Tender, Soft Extremity: Normal Inspection, Non Tender, No Pedal Edema Neurologic/Psychiatric: Alert, Oriented x3, No Motor/Sensory Deficits, Normal Mood/Affect Results/Procedures Lab Patient resulted labs reviewed. Imaging: Reviewed Imaging Report Assessment/Plan Assessment and Plan Assess & Plan/Chief Complaint Acute respiratory failure due to COVID-19 COVID+ at outside facility 12/14 s/p MAB infusion 12/17 Requiring supplemental oxygen, stable on 2 L nasal cannula Continue Decadron Procalcitonin elevated Continue Rocephin and Azithromycin D-dimer mildly elevated CT without evidence of PE Prophylactic Lovenox Obesity Clinically significant, no acute management needs DVT prophylaxis: Lovenox Diagnosis/Problems Diagnosis/Problems (1) Pneumonia due to COVID-19 virus Status: Acute (2) Acute respiratory failure due to COVID-19 Status: Acute (3) Secondary bacterial pneumonia Status: Acute (4) Elevated d-dimer Status: Acute (5) Obesity Status: Chronic SERENITY WILSON MD Dec 20, 2020 11:46
[2020-12-20] MEDS: cefTRIAXone 1,000 MG VIAL IM SCH (17:47)
[2020-12-20] MEDS: ENOXAPARIN 40 MG/0.4 ML (LOVENOX) SYR SC SCH (19:18)
[2020-12-20] MEDS: AZITHROMYCIN 250 MG/NS 250 ML IVPB IV SCH ×2 (19:18)
[2020-12-21] MEDS: guaiFENesin SYRUP 100 MG/5 ML 10 ML (ROBITUSSIN SF) PO PRN ×3 (00:31→14:50)
[2020-12-21] MEDS: LACTATED RINGERS 1,000 ML IV SCH ×2 (00:31→11:50)
[2020-12-21] MEDS: RT-ALBUTEROL HFA 8.5 GM INHALER IH SCH ×2 (02:58→08:31)
[2020-12-21 05:00] VITALS: BP 112/72
[2020-12-21] MEDS: inSUlin ASPART (NovoLOG) 1 UNIT/0.01 ML (CHARGE PER UNIT) SC SCH ×2 (05:14→11:47)
[2020-12-21 06:33] LABS: CALCIUM 8.5 MG/DL (8.5-10.1)
[2020-12-21 06:37] LABS: CREATININE SERUM 0.85 MG/DL (0.60-1.30)
[2020-12-21 08:28] VITALS: BP 102/69
[2020-12-21] MEDS: BENZONATATE 100 MG (TESSALON) CAPSULE PO PRN (09:15)
[2020-12-21 11:44] VITALS: BP 129/80
== END 2020-12-21 15:10 | disposition home or self-care (01) | DRG 177 ==
LOC: EDUNIT# 16:52 → ER 16:53 → 4TH 18:39
PROVIDERS: ADMIT Internal Medicine; ATTEND Internal Medicine
DX: U07.1 COVID-19 (principal); J12.82 Pneumonia due to coronavirus disease 2019; J15.9 Unspecified bacterial pneumonia; J96.01 Acute respiratory failure with hypoxia; H54.7 Unspecified visual loss; R79.89 Other specified abnormal findings of blood chemistry; E66.9 Obesity, unspecified; Z68.33 Body mass index [BMI] 33.0-33.9, adult; F17.290 Nicotine dependence, other tobacco product, uncomplicated; Z73.0 Burn-out
CPT/HCPCS: 36415; 71045; 71275; 80048; 80053; 81000; 82947; 83605; 83735; 84145; 85025; 85379; 85610; 85730; 86141; 87040; 87088; 94640; 94664; 94760; 94761; 96361; 96365; 96375

== ENCOUNTER 2020-12-24 15:22 | Inpatient (IN) | payer MEDICARE, OTHER ==
[~2020-12-24] VITALS: Ht 162.6 cm; Wt 86.7 kg
[2020-12-24 16:17] LABS: BILIRUBIN,URINE NEGATIVE (NEGATIVE); CLARITY,URINE CLEAR; COLOR,URINE YELLOW; GLUCOSE, URINE (UA) TRACE (NEGATIVE); KETONES,URINE 2+ (NEGATIVE); LEUKOCYTE ESTERASE ,URINE NEGATIVE (NEGATIVE); NITRITE,URINE NEGATIVE (NEGATIVE); PROTEIN,URINE NEGATIVE (NEGATIVE)
[2020-12-24 16:22] LABS: BASOPHILS % (AUTO) 1 % (0-10); EOSINOPHILS % (AUTO) 1 % (0-10); HEMATOCRIT 46 % (40-54); HEMOGLOBIN 15.7 g/dL (13.3-17.7); LYMPHOCYTES % (AUTO) 7 % (12-44); MEAN CORPUSCULAR HEMOGLOBIN 30 pg (25-34); MEAN CORPUSCULAR HGB CONC 35 g/dL (32-36); MEAN CORPUSCULAR VOLUME 86 fL (80-99); MEAN PLATELET VOLUME 9.5 fL (9.0-12.2); MONOCYTES % (AUTO) 9 % (0-12); NEUTROPHILS % (AUTO) 76 % (42-75); PLATELET COUNT 328 10^3/uL (130-400); WHITE BLOOD COUNT 13.7 10^3/uL (4.3-11.0)
[2020-12-24 16:23] LABS: BASOPHILS # (AUTO) 0.1 10^3/uL (0.0-0.1); EOSINOPHILS # (AUTO) 0.2 10^3/uL (0.0-0.3); MONOCYTES # (AUTO) 1.2 X 10^3 (0.0-1.0); NEUTROPHILS # (AUTO) 10.5 X 10^3 (1.8-7.8)
--- NOTE | 2020-12-24 16:23 | Diagnostic Imaging Report ---
INDICATION: COVID positive, hypoxia and cough. Frontal chest obtained at 4:13 p.m. and compared to 12/19/2020. FINDINGS: Heart is top limits normal in size. Mediastinal silhouette is unremarkable. There is patchy infiltrate in the mid lung and base on both sides, which has worsened compared to the previous study. There is no pneumothorax or pleural fluid. IMPRESSION: Patchy bilateral mid lung and basilar infiltrates are present, which have worsened compared to the previous study. Dictated by: Dictated on workstation # [id number]
[2020-12-24 16:32] LABS: BACTERIA,URINE NEGATIVE /HPF; SQUAMOUS EPITHELIAL CELL,UR 0-2 /HPF; WBC,URINE 0-2 /HPF
[2020-12-24 16:39] LABS: BILIRUBIN,TOTAL 1.9 MG/DL (0.1-1.0); CALCIUM 9.3 MG/DL (8.5-10.1); CREATININE SERUM 1.04 MG/DL (0.60-1.30); POTASSIUM 4.2 MMOL/L (3.6-5.0); TOTAL PROTEIN 6.6 GM/DL (6.4-8.2)
[2020-12-24 16:40] LABS: ALBUMIN 3.3 GM/DL (3.2-4.5)
[2020-12-24] MEDS ORDERED: NS IV 1000 ML 1,000 ML IV SCH (16:45)
[2020-12-24 16:55] LABS: BAND NEUTROPHILS 0 %; BASOPHILS % (MANUAL) 0 %; EOSINOPHILS % (MANUAL) 2 %; LYMPHOCYTES % (MANUAL) 5 %; METAMYELOCYTES % 2 %; MONOCYTES % (MANUAL) 4 %; NEUTROPHILS % (MANUAL) 87 %
[2020-12-24 17:28] LABS: ABG PH 7.56 (7.37-7.43)
[2020-12-24 17:29] LABS: ABG BASE EXCESS -2.3 MMOL/L (-2.5-2.5); ABG OXYGEN SATURATION 92 % (94-100); ABG PCO2 20 MMHG (35-45); ABG PO2 53 MMHG (79-93); ABG TCO2 18.5 MMOL/L (21.0-31.0); ALLENS TEST OK; INSPIRED O2 3 LITERS; PATIENT TEMP 36.2; VENTILATOR NO
[2020-12-24] MEDS ORDERED: CATHETER FLUSH 10 ML SYR IV PRN (17:30)
[2020-12-24] MEDS ORDERED: NS 100 ML (IVPB) BAG IV ONE (17:30)
[2020-12-24] MEDS ORDERED: HOLD METFORMIN - RECEIVED CONTRAST 20 ML VIAL IV SCH (17:30)
[2020-12-24] MEDS ORDERED: IOHEXOL 350 MG/ML 100 ML (OMNIPAQUE 350) VIAL IV ONE (17:30)
[2020-12-24] MEDS ORDERED: ENOXAPARIN 100 MG/1 ML (LOVENOX) SYR SC ONE (18:30)
--- NOTE | 2020-12-24 18:31 | Diagnostic Imaging Report ---
CLINICAL INDICATION: Patient Covid positive with cough and shortness of breath, low oxygen. Exam: CT angiogram of the chest performed with 100 cc Omnipaque 350 IV contrast. Coronal and oblique MIP images of the vasculature were created to better evaluate anatomy. Auto Exposure Controls were utilized during the CT exam to meet ALARA standards for radiation dose reduction. Comparison: CT angiogram of the chest with contrast dated 12/18/2020. Findings: There is interval development of partially occlusive thrombus within the origin of the left upper lobe segmental pulmonary arteries extending into subsegmental pulmonary arteries of the left upper lobe. There is partial obstruction with pulmonary embolism involving the inferior left lower lobe which extends into multiple left lung base which extends into the posterior and lateral subsegmental pulmonary arteries. There is near complete occlusion of the subsegmental left lower lobe pulmonary arteries. There is occlusive and nonocclusive thrombus within the subsegmental pulmonary arteries of the right upper lobe. Lung disease obscures evaluation of more distal vessels involving the bilateral pulmonary arteries. There is no thoracic aortic aneurysm or dissection. There is interval progression of geographic and patchy groundglass areas of consolidation and slightly denser consolidation throughout both lungs with the periphery affected the most. There is significant progression in the upper lung jones compared to prior study and slight progression involving both lower lung jones compared to prior study. There is no pleural effusion or pneumothorax. There are multiple subcentimeter lymph nodes in the mediastinal region. There is no axillary lymphadenopathy. Mediastinal structures are otherwise unremarkable. Visualized upper abdominal structures show no significant interval abnormality. There are degenerative spurs involving the thoracic spine. IMPRESSION: 1: There is interval development of bilateral pulmonary emboli involving the segmental and subsegmental left-sided pulmonary arteries and segmental right pulmonary arteries. 2: There is interval progression of groundglass and patchy consolidation throughout both lungs with the periphery affected the most. Results of this report discussed with Dr. Teddy Gonzáles via the telephone on 12/24/2020 at 1810 hours. Dictated by: Dictated on workstation # [id number]
[2020-12-24] MEDS ORDERED: PIPERACILLIN SODIUM/TAZOBACTAM 4.5 GM in NS (IVPB) 100 ML IV ONE (19:00)
--- NOTE | 2020-12-24 19:05 | ED General ---
General Chief Complaint: COVID19 Suspect/Confirmed Stated Complaint: COVID+,LOW O2 Nursing Triage Note: PATIENT PRESENTS TO THE ED WITH C/O SHORTNESS OF BREATH. HE REPORTS THAT HE TESTED POSITIVE FOR COVID 19 ON December AND HAD AN INFUSION ON THE . HE STATES THAT HE FEELS MORE SHORT OF BREATH TODAY AND HIS OXYGEN SATURATION IS FLUCTUATING BETWEEN 81-95%. HE IS CURRENTLY ON HOME OXYGEN AT 3L VIA NASAL CANNULA. Source of Information: Patient, Family Exam Limitations: No Limitations History of Present Illness Date Seen by Provider: Dec 24, 2020 Time Seen by Provider: 15:30 Initial Comments Patient is a 65-year-old male released from [facility] for Covid 6 days ago on 2 L of oxygen who presents with increased shortness of breath, productive cough and decreased oxygen saturation. Patient states his oxygen level at home has been ranging from 81 to 95%. He is selectively increased himself to 3 L. He denies fever chills, nausea vomiting and sweats. He reports dizziness lightheadedness, tingling. Reports anxiety. No abdominal pain palpitations. No flank pain. No urinary frequency urgency or dysuria. No leg pain or swelling. Timing/Duration: Getting Worse Severity: Moderate Modifying Factors: improves with Other Associated Systoms: Other Allergies and Home Medications Allergies Coded Allergies: No Known Drug Allergies (Unverified , 07/14/20) Patient Home Medication List Home Medication List Reviewed: Yes Bacitracin/Polymyxin B Sulfate (Polysporin Ointment) 28.3 Gm Oint...g., 28.3 GM TP BID Prescribed by: CARMEN WORKMAN on 07/14/201744 Ondansetron (Ondansetron Odt) 4 Mg Tab.rapdis, 4 MG PO Q6H PRN for NAUSEA/VOMITING Prescribed by: AMAN REED on 12/17/20 1442 Discontinued Medications Clindamycin HCl (Clindamycin HCl) 300 Mg Capsule, 300 MG PO TIDWM Prescribed by: CARMEN WORKMAN on 07/14/201744 Review of Systems Review of Systems Constitutional: see HPI EENTM: see HPI Respiratory: see HPI Cardiovascular: see HPI Gastrointestinal: see HPI Genitourinary: see HPI Musculoskeletal: see HPI Psychiatric/Neurological: See HPI Hematologic/Lymphatic: See HPI Immunological/Allergic: see HPI Past Zlxlzrd-Xuaacr-Rdtyvy Hx Patient Social History Tobacco Use?: Yes Use of E-Cig and/or Vaping dev: No Substance use?: No Alcohol Use?: No Pt feels they are or have been: No Immunizations Up To Date First/Initial COVID19 Vaccinat: NONE Second COVID19 Vaccination Jeronimo: NONE Third COVID19 Vaccination Date: NONE Seasonal Allergies Seasonal Allergies: No Past Medical History Surgery/Hospitalization HX: left knee surgery. COVID +12/13/20. ANTIBODY INFUSION 12/18/20. RECENTLY HOSPITALIZED RELATED TO COVID DISCHARGED 12/21/20 ON 2L OF OXYGEN. Surgeries: Yes Orthopedic Respiratory: No Cardiac: No Neurological: No Genitourinary: No Gastrointestinal: No Musculoskeletal: No Endocrine: No HEENT: No Cancer: No Psychosocial: No Integumentary: No Blood Disorders: No Family Medical History No Pertinent Family Hx Physical Exam Vital Signs Vital Signs - First Documented 12/24/20 12/24/20 15:37 15:44 Temp 36.5 Pulse 83 Resp 25 B/P (MAP) 121/71 (88) Pulse Ox 93 O2 Delivery Nasal Cannula O2 Flow Rate 3.00 Capillary Refill : Less Than 3 Seconds Height, Weight, BMI Height: '" Weight: lbs. oz. kg; 33.00 BMI Method: General Appearance: No Apparent Distress, Anxious, Mild Distress (Respiratory) Eyes: Bilateral Eye Normal Inspection, Bilateral Eye PERRL, Bilateral Eye EOMI HEENT: PERRL/EOMI, Normal ENT Inspection Neck: Supple Respiratory: Decreased Breath Sounds, Other (Mild tachypnea) Cardiovascular: Regular Rate, Rhythm, No Edema, No Murmur Gastrointestinal: Non Tender, Soft Extremity: Normal Capillary Refill, Normal Inspection Neurologic/Psychiatric: Alert, Oriented x3 Skin: Normal Color Focused Exam Possible Source: Pulmonary Lactate Level 12/24/20 15:53: Lactic Acid Level 2.18*H 12/24/20 18:20: Lactic Acid Level 2.45*H Time of Focused Exam: 15:30 Lactic Acid Level Laboratory Tests Test 12/24/20 15:53 12/24/20 18:20 Lactic Acid Level 2.18 MMOL/L (0.50-2.00) *H 2.45 MMOL/L (0.50-2.00) *H Progress/Results/Core Measures Suspected Sepsis SIRS Temperature: Pulse: 83 Respiratory Rate: 25 Laboratory Tests 12/24/20 15:53: White Blood Count 13.7H Blood Pressure 121 /71 Mean: 88 12/24/20 15:53: Lactic Acid Level 2.18*H 12/24/20 18:20: Lactic Acid Level 2.45*H Laboratory Tests 12/24/20 15:53: Creatinine 1.04, INR Comment 1.0, Platelet Count 328, Total Bilirubin 1.9H Results/Orders Lab Results Laboratory Tests Test 12/24/20 15:39 12/24/20 15:53 12/24/20 16:00 12/24/20 18:20 Range/Units Urine Color YELLOW Urine Clarity CLEAR Urine pH 6.0 5-9 Urine Specific [place] 1.015 L 1.016-1.022 Urine Protein NEGATIVE NEGATIVE Urine Glucose (UA) TRACE H NEGATIVE Urine Ketones 2+ H NEGATIVE Urine Nitrite NEGATIVE NEGATIVE Urine Bilirubin NEGATIVE NEGATIVE Urine Urobilinogen 0.2 < = 1.0 MG/DL Urine Leukocyte Esterase NEGATIVE NEGATIVE Urine RBC (Auto) TRACE-I H NEGATIVE Urine RBC NONE /HPF Urine WBC 0-2 /HPF Urine Squamous Epithelial Cells 0-2 /HPF Urine Crystals NONE /LPF Urine Bacteria NEGATIVE /HPF Urine Casts NONE /LPF Urine Mucus NEGATIVE /LPF Urine Culture Indicated NO White Blood Count 13.7 H 4.3-11.0 10^3/uL Red Blood Count 5.31 4.30-5.52 10^6/uL Hemoglobin 15.7 13.3-17.7 g/dL Hematocrit 46 40-54 % Mean Corpuscular Volume 86 80-99 fL Mean Corpuscular Hemoglobin 30 25-34 pg Mean Corpuscular Hemoglobin Concent 35 32-36 g/dL Red Cell Distribution Width 12.5 10.0-14.5 % Platelet Count 328 130-400 10^3/uL Mean Platelet Volume 9.5 9.0-12.2 fL Immature Granulocyte % (Auto) 6 % Neutrophils (%) (Auto) 76 H 42-75 % Lymphocytes (%) (Auto) 7 L 12-44 % Monocytes (%) (Auto) 9 0-12 % Eosinophils (%) (Auto) 1 0-10 % Basophils (%) (Auto) 1 0-10 % Neutrophils # (Auto) 10.5 H 1.8-7.8 X 10^3 Lymphocytes # (Auto) 1.0 1.0-4.0 X 10^3 Monocytes # (Auto) 1.2 H 0.0-1.0 X 10^3 Eosinophils # (Auto) 0.2 0.0-0.3 10^3/uL Basophils # (Auto) 0.1 0.0-0.1 10^3/uL Immature Granulocyte # (Auto) 0.8 H 0.0-0.1 10^3/uL Neutrophils % (Manual) 87 % Lymphocytes % (Manual) 5 % Monocytes % (Manual) 4 % Eosinophils % (Manual) 2 % Basophils % (Manual) 0 % Metamyelocytes % 2 % Band Neutrophils 0 % Prothrombin Time 14.0 12.2-14.7 SEC INR Comment 1.0 0.8-1.4 Activated Partial Thromboplast Time 24 24-35 SEC Sodium Level 133 L 135-145 MMOL/L Potassium Level 4.2 3.6-5.0 MMOL/L Chloride Level 98 98-107 MMOL/L Carbon Dioxide Level 22 21-32 MMOL/L Anion Gap 13 5-14 MMOL/L Blood Urea Nitrogen 13 7-18 MG/DL Creatinine 1.04 0.60-1.30 MG/DL Estimat Glomerular Filtration Rate 72 BUN/Creatinine Ratio 13 Glucose Level 182 H 70-105 MG/DL Lactic Acid Level 2.18 *H 2.45 *H 0.50-2.00 MMOL/L Calcium Level 9.3 8.5-10.1 MG/DL Corrected Calcium 9.9 8.5-10.1 MG/DL Total Bilirubin 1.9 H 0.1-1.0 MG/DL Aspartate Amino Transf (AST/SGOT) 33 5-34 U/L Alanine Aminotransferase (ALT/SGPT) 72 H 0-55 U/L Alkaline Phosphatase 66 40-136 U/L Total Protein 6.6 6.4-8.2 GM/DL Albumin 3.3 3.2-4.5 GM/DL Blood Gas Puncture Site LEFT AC Blood Gas Patient Temperature 36.2 Arterial Blood pH 7.56 H 7.37-7.43 Arterial Blood Partial Pressure CO2 20 L 35-45 MMHG Arterial Blood Partial Pressure O2 53 L 79-93 MMHG Arterial Blood HCO3 18 L 23-27 MMOL/L Arterial Blood Total CO2 18.5 L 21.0-31.0 MMOL/L Arterial Blood Oxygen Saturation 92 L 94-100 % Arterial Blood Base Excess -2.3 -2.5-2.5 MMOL/L Kam Test OK Blood Gas Ventilator Setting NO Blood Gas Inspired Oxygen 3 LITERS My Orders Orders - SARAH RAHMAN DO Cbc With Automated Diff (12/24/20 16:05) Comprehensive Metabolic Panel (12/24/20 16:05) Blood Culture (12/24/20 16:05) Sputum Culture (12/24/20 16:05) Urinalysis (12/24/20 16:05) Urine Culture (12/24/20 16:05) Protime With Inr (12/24/20 16:05) Partial Thromboplastin Time (12/24/20 16:05) Chest 1 View Ap/Pa Only (12/24/20 16:05) Ed Iv/Invasive Line Start (12/24/20 16:05) Ed Iv/Invasive Line Start (12/24/20 16:05) Vital Signs Adult Sepsis Patie Q15M (12/24/20 16:05) O2 (12/24/20 16:05) Remove Rings In Anticipation O (12/24/20 16:05) Lactic Acid Analyzer (12/24/20 16:05) Manual Differential (12/24/20 15:53) Ns Iv 1000 Ml (Sodium Chloride 0.9%) (12/24/20 16:45) Arterial Blood Gas (12/24/20 17:23) Ct Angio Chest W (12/24/20 17:27) Iohexol Injection (Omnipaque 350 Mg/Ml 1 (12/24/20 17:30) Received Contrast (Hold Metformin- Contr (12/24/20 17:30) Sodium Chloride Flush (Catheter Flush Sy (12/24/20 17:30) Ns (Ivpb) (Sodium Chloride 0.9% Ivpb Bag (12/24/20 17:30) Enoxaparin Injection (Lovenox Injection) (12/24/20 18:30) Ns Iv 1000 Ml (Sodium Chloride 0.9%) (12/24/20 19:00) Piperacillin Sodium/Tazobactam (Zosyn Vi (12/24/20 19:00) Medications Given in ED Current Medications Medications Dose Ordered Sig/Albin Route Start Time Stop Time Status Last Admin Dose Admin Enoxaparin Sodium 90 mg ONCE ONCE SC 12/24/20 18:30 12/24/20 18:31 DC 12/24/20 18:26 90 MG Iohexol 100 ml ONCE ONCE IV 12/24/20 17:30 12/24/20 17:31 DC 12/24/20 18:00 100 ML Sodium Chloride 10 ml NEEDED PRN IV 12/24/20 17:30 12/24/20 18:00 10 ML Sodium Chloride 100 ml ONCE ONCE IV 12/24/20 17:30 12/24/20 17:31 DC 12/24/20 18:00 100 ML Vital Signs/I&O 12/24/20 12/24/20 15:37 15:44 Temp 36.5 Pulse 83 Resp 25 B/P (MAP) 121/71 (88) Pulse Ox 93 O2 Delivery Nasal Cannula Nasal Cannula O2 Flow Rate 3.00 Capillary Refill : Less Than 3 Seconds Blood Pressure Mean: 88 Departure Communication (Admissions) Chest x-ray: Pulmonary infiltrates CTA chest: Pulmonary infiltrates, bilateral PE. Patient with mild respiratory distress with respiratory alkalosis with CT findings suggestive of bilateral PE and Covid pneumonia. Patient with dyspnea with hypoxia on 3 L of oxygen with only mild exertion in the emergency department. Lovenox given and IV antibiotics started. Patient shows increased lactic acid. Heart rate, blood pressure stable. Additional fluids given. Dr. Doe to admit to [facility] Impression Primary Impression: Pulmonary emboli Additional Impression: COVID Disposition: ADMITTED INPATIENT Condition: Stable Admissions Decision to Admit Reason: Admit from ER (General) Decision to Admit/Date: Dec 24, 2020 Time/Decision to Admit Time: 14:30 (Dr. Doe) Departure-Patient Inst. Referrals: YVONNE ZAMORA MD (PCP/Family) Primary Care Physician SARAH RAHMAN DO Dec 24, 2020 19:05
[2020-12-24] MEDS: NS IV 1000 ML 1,000 ML IV SCH ×3 (19:07→22:30)
[2020-12-24] MEDS ORDERED: PIPERACILLIN/TAZO 4.5 GM/NS 100 ML IV SCH ×2 (22:30)
[2020-12-24] MEDS ORDERED: RT-ALBUTEROL HFA 8.5 GM INHALER IH SCH (23:37)
[2020-12-25] VITALS (9 sets, daily range): BP systolic 109–128; BP diastolic 67–81
[2020-12-25] MEDS ORDERED: PIPERACILLIN/TAZO 4.5 GM/NS 100 ML IV SCH ×2 (03:30)
[2020-12-25 05:27] LABS: BASOPHILS # (AUTO) 0.1 10^3/uL (0.0-0.1); BASOPHILS % (AUTO) 0 % (0-10); EOSINOPHILS # (AUTO) 0.2 10^3/uL (0.0-0.3); EOSINOPHILS % (AUTO) 2 % (0-10); HEMATOCRIT 38 % (40-54); HEMOGLOBIN 13.1 g/dL (13.3-17.7); LYMPHOCYTES # (AUTO) 0.5 10^3/uL (1.0-4.0); LYMPHOCYTES % (AUTO) 4 % (12-44); MEAN CORPUSCULAR HEMOGLOBIN 30 pg (25-34); MEAN CORPUSCULAR HGB CONC 35 g/dL (32-36); MEAN CORPUSCULAR VOLUME 87 fL (80-99); MEAN PLATELET VOLUME 9.6 fL (9.0-12.2); MONOCYTES # (AUTO) 1.2 10^3/uL (0.0-1.0); MONOCYTES % (AUTO) 9 % (0-12); NEUTROPHILS # (AUTO) 10.1 10^3/uL (1.8-7.8); NEUTROPHILS % (AUTO) 79 % (42-75); PLATELET COUNT 261 10^3/uL (130-400); WHITE BLOOD COUNT 12.7 10^3/uL (4.3-11.0)
[2020-12-25 05:42] LABS: POTASSIUM 4.2 MMOL/L (3.6-5.0)
[2020-12-25 05:43] LABS: CALCIUM 8.3 MG/DL (8.5-10.1)
[2020-12-25 05:48] LABS: CREATININE SERUM 0.84 MG/DL (0.60-1.30)
[2020-12-25] MEDS ORDERED: ENOXAPARIN 100 MG/1 ML (LOVENOX) SYR SC SCH (06:30)
[2020-12-25] MEDS: NS IV 1000 ML 1,000 ML IV SCH ×2 (08:37→17:46)
[2020-12-25] MEDS: RIVAROXABAN 15 MG TABLET (XARELTO) PO SCH ×2 (09:04→17:46)
[2020-12-25] MEDS: UMECLIDINIUM BROMIDE (INCRUSE ELLIPTA) 7'S IH SCH ×2 (10:00→10:02)
--- NOTE | 2020-12-25 11:03 | History & Physical-Hospitalist ---
History of Present Illness HPI/Chief Complaint Bryce Nguyen is a 65-year-old male who was recently admitted with Covid who presented with shortness of breath. He became more short of breath yesterday and presented to the emergency room. He reports that he is having trouble taking a deep breath. He denies chest pain. He denies fevers and chills. His cough is unchanged. He is not having any leg swelling. Source: patient Exam Limitations: no limitations Date Seen 12/25/20 Time Seen by a Provider: 09:25 Attending Physician Serenity Doe MD PCP Lyudmila Dao MD Referring Physician Date of Admission Dec 24, 2020 at 20:07 Home Medications & Allergies Home Medications Reviewed patient Home Medication Reconciliation performed by pharmacy medication reconciliations facility maintenance technician and/or nursing. Patients Allergies have been reviewed. Allergies Allergies Coded Allergies No Known Drug Allergies (Unverified07/14/20) Past Rkktrmo-Rooxyk-Vatxxn Hx Patient Social History Tobacco Use?: No Smoking Status: Never a Smoker Smokeless Tobacco Frequency: Never a User Use of E-Cig and/or Vaping dev: No Substance use?: No Alcohol Use?: No Pt feels they are or have been: No Immunizations Up To Date First/Initial COVID19 Vaccinat: NONE Second COVID19 Vaccination Jeronimo: NONE Tetanus Booster (TDap): Less Than 5 Years Hepatitis A: Yes Hepatitis B: Yes Seasonal Allergies Seasonal Allergies: No Current Status Advance Directives: No Communicates: Verbally Primary Language: [place]er Preferred Spoken Language: [place] Is interpretation needed?: No Sensory deficits: Vision impairment Implanted or Applied Medical D: None Past Medical History Surgeries: Orthopedic Blood Disorders: No Family Medical History No Pertinent Family Hx Review of Systems Constitutional: malaise EENTM: no symptoms reported Respiratory: cough, short of breath Cardiovascular: no symptoms reported Gastrointestinal: no symptoms reported Genitourinary: no symptoms reported Musculoskeletal: no symptoms reported Skin: no symptoms reported Psychiatric/Neurological: No Symptoms Reported Physical Exam Physical Exam Vital Signs Vital Signs - First Documented 12/24/20 12/24/20 12/25/20 15:37 15:44 00:39 Temp 36.5 Pulse 83 Resp 25 B/P (MAP) 121/71 (88) Pulse Ox 93 O2 Delivery Nasal Cannula O2 Flow Rate 3.00 FiO2 95 Capillary Refill : Less Than 3 Seconds Height, Weight, BMI Height: '" Weight: lbs. oz. kg; 32.79 BMI Method: General Appearance: No Apparent Distress, Obese HEENT: PERRL/EOMI, Pharynx Normal Neck: Normal Inspection, Supple Respiratory: Chest Non Tender, Lungs Clear, Normal Breath Sounds, No Respiratory Distress Cardiovascular: Regular Rate, Rhythm, No Edema, No Murmur Gastrointestinal: Normal Bowel Sounds, Non Tender, Soft Extremity: Normal Inspection, Non Tender, No Pedal Edema Neurologic/Psychiatric: Alert, Oriented x3, No Motor/Sensory Deficits Skin: Normal Color, Warm/Dry Results Results/Procedures Labs Laboratory Tests 12/24/20 15:53 12/25/20 05:08 Patient resulted labs reviewed. Imaging: Reviewed Imaging Report Assessment/Plan Admission Diagnosis Bilateral pulmonary emboli Admission Status: Inpatient Order (span 2 midnights) Reason for Inpatient Admission: Respiratory failure Assessment and Plan Bilateral pulmonary emboli Acute respiratory failure with hypoxia History of COVID-19 Requiring increased supplemental oxygen CTA showed bilateral pulmonary emboli Started on Lovenox Transition to Xarelto Outside of quarantine window Remove isolation Procalcitonin improved Stop antibiotics Obesity Clinically significant, no acute management needs DVT prophylaxis: already receiving therapeutic anticoagulation Diagnosis/Problems Diagnosis/Problems (1) Bilateral pulmonary embolism Status: Acute (2) Acute respiratory failure with hypoxia Status: Acute (3) History of COVID-19 Status: Chronic (4) Obesity Status: Chronic Qualifiers: Obesity type: due to excess calories Obesity classification: adult class 1 (BMI 30 - 34.9) Serious obesity comorbidity presence: without serious comorbidity Body mass index: BMI 32.0-32.9 Qualified Codes: E66.09 - Other obesity due to excess calories; Z68.32 - Body mass index [BMI] 32.0-32.9, adult SERENITY ODE MD Dec 25, 2020 11:03
[2020-12-26 00:54] VITALS: BP 141/84
[2020-12-26 04:01] VITALS: BP 135/76
[2020-12-26] MEDS: NS IV 1000 ML 1,000 ML IV SCH (04:04)
[2020-12-26] MEDS: RIVAROXABAN 15 MG TABLET (XARELTO) PO SCH ×2 (06:37→17:10)
[2020-12-26 07:55] VITALS: BP 105/69
[2020-12-26] MEDS: UMECLIDINIUM BROMIDE (INCRUSE ELLIPTA) 7'S IH SCH (08:41)
[2020-12-26] MEDS ORDERED: polyethylene glycoL POWDER 17 GM (MIRALAX) PACK PO PRN (10:15)
[2020-12-26] MEDS ORDERED: ACETAMINOPHEN 325 MG TABLET PO PRN (10:15)
[2020-12-26] MEDS ORDERED: MELATONIN 3 MG TABLET PO PRN (10:15)
[2020-12-26] MEDS ORDERED: diphenhydrAMINE 25 MG TAB (BENADRYL) PO PRN (10:15)
[2020-12-26] MEDS ORDERED: BISACODYL 10 MG SUPP (DULCOLAX) PR PRN (10:15)
[2020-12-26] MEDS ORDERED: ANTACID SUSP 30 ML UDC (MYLANTA) PO PRN (10:15)
[2020-12-26] MEDS ORDERED: ONDANSETRON 4 MG/2 ML (SDV) Z0FRAN IV PRN (10:15)
[2020-12-26] MEDS ORDERED: ONDANSETRON 4 MG (ZOFRAN) ORAL DISSOLVE TAB PO PRN (10:15)
[2020-12-26] MEDS ORDERED: CATHETER FLUSH 10 ML SYR IV PRN (10:30)
[2020-12-26] MEDS: guaiFENesin/DM (ROBITUSSIN DM) 10 ML UDC PO PRN ×3 (10:48→21:43)
--- NOTE | 2020-12-26 10:55 | Progress Note - Hospitalist ---
Subjective HPI/CC On Admission Date Seen by Provider: Dec 26, 2020 Time Seen by Provider: 10:05 Bryce Nguyen is a 65-year-old male who was recently admitted with Covid who presented with shortness of breath. He became more short of breath yesterday and presented to the emergency room. He reports that he is having trouble taking a deep breath. He denies chest pain. He denies fevers and chills. His cough is unchanged. He is not having any leg swelling. Subjective/Events-last exam He still has a cough. He had his oxygen off for a while overnight and he did not feel short of breath. He denies fevers. Focused Exam Lactate Level 12/24/20 15:53: Lactic Acid Level 2.18*H 12/24/20 18:20: Lactic Acid Level 2.45*H 12/24/20 22:04: Lactic Acid Level 1.10 Time of Focused Exam: 15:30 Objective Exam Vital Signs Vital Signs Date Time Temp Pulse Resp B/P (MAP) Pulse Ox O2 Delivery O2 Flow Rate FiO2 12/26/20 07:55 35.5 48 22 105/69 (81) 97 Nasal Cannula 3.00 12/25/20 04:39 95 Capillary Refill : Less Than 3 Seconds General Appearance: No Apparent Distress, Obese Respiratory: Lungs Clear, Normal Breath Sounds, No Respiratory Distress Cardiovascular: No Edema, No Murmur, Bradycardia Gastrointestinal: Normal Bowel Sounds, Non Tender, Soft Extremity: Normal Inspection, Non Tender, No Pedal Edema Neurologic/Psychiatric: Alert, Oriented x3, No Motor/Sensory Deficits, Normal Mood/Affect Skin: Normal Color, Warm/Dry Results/Procedures Lab Patient resulted labs reviewed. Imaging: Reviewed Imaging Report Assessment/Plan Assessment and Plan Assess & Plan/Chief Complaint Bilateral pulmonary emboli Acute respiratory failure with hypoxia History of COVID-19 Requiring increased supplemental oxygen CTA showed bilateral pulmonary emboli Continue Xarelto Oxygen requirement improving Remove isolation Obesity Clinically significant, no acute management needs DVT prophylaxis: already receiving therapeutic anticoagulation Diagnosis/Problems Diagnosis/Problems (1) Bilateral pulmonary embolism Status: Acute (2) Acute respiratory failure with hypoxia Status: Acute (3) History of COVID-19 Status: Chronic (4) Obesity Status: Chronic Qualifiers: Obesity type: due to excess calories Obesity classification: adult class 1 (BMI 30 - 34.9) Serious obesity comorbidity presence: without serious comorbidity Body mass index: BMI 32.0-32.9 Qualified Codes: E66.09 - Other obesity due to excess calories; Z68.32 - Body mass index [BMI] 32.0-32.9, adult SERENITY WILSON MD Dec 26, 2020 10:55
[2020-12-26 11:00] VITALS: BP 122/67
[2020-12-26 16:10] VITALS: BP 123/66
[2020-12-27] VITALS: BP 141/83
[2020-12-27] MEDS: RIVAROXABAN 15 MG TABLET (XARELTO) PO SCH ×2 (06:27→18:02)
[2020-12-27 08:45] VITALS: BP 110/71
[2020-12-27] MEDS: UMECLIDINIUM BROMIDE (INCRUSE ELLIPTA) 7'S IH SCH (10:20)
[2020-12-27] MEDS: guaiFENesin/DM (ROBITUSSIN DM) 10 ML UDC PO PRN (10:32)
[2020-12-27] MEDS ORDERED: RT-ALBUTEROL/IPRATROPIUM 3 ML (DUONEB) VIAL ONE (10:35)
[2020-12-27] MEDS ORDERED: RIVA20TA PO ×2 (14:42→14:43)
[2020-12-27] MEDS ORDERED: RIVA1TAB PO ×2 (14:42→14:43)
--- NOTE | 2020-12-27 14:57 | Discharge Summary ---
Discharge Summary Hospital Course Problems/Dx: (1) Bilateral pulmonary embolism Status: Acute (2) Hypercoagulable state associated with COVID-19 Status: Acute (3) History of COVID-19 Status: Chronic (4) Acute respiratory failure with hypoxia Status: Acute (5) Obesity Status: Chronic Qualifiers: Qualified Codes: E66.09 - Other obesity due to excess calories; Z68.32 - Body mass index [BMI] 32.0-32.9, adult Hospital Course Date of Admission: Dec 24, 2020 at 20:07 Admission Diagnosis : Bilateral pulmonary embolism due to hypercoagulability associated with COVID-19 Family Physician/Provider: Lyudmila Dao MD Date of Discharge: 12/27/20 Discharge Diagnosis: Bilateral pulmonary embolism due to hypercoagulability associated with COVID-19 Hospital Course: Bryce Nguyen is a 65 year old who was admitted with bilateral pulmonary embolism. He was recently discharged after a hospitalization due to COVID-19. He developed worsening shortness of breath after being discharged home and he returned. He had developed bilateral pulmonary emboli secondary to hypercoagulability associated with COVID-19. He was started on Lovenox and transitioned to Xarelto. He was given a prescription for 3 month supply of Xarelto on discharge. He was initially requiring supplemental oxygen, but required none at the time of discharge. He should follow up with his PCP in about a week. He was discharged home in stable condition. Labs and Pending Lab Test: Microbiology 12/24/20 Blood Culture - Final, Complete Bacillus sp not B. anthracis 12/24/20 Urine Culture - Final, Complete NO GROWTH Home Meds Active Xarelto (Rivaroxaban) 20 Mg Tablet 20 Mg PO DAILY 60 Days Xarelto Starter Pack (Rivaroxaban) 1 Each Tab.ds.pk 1 Each PO UD 15mg by mouth twice daily x 21 days then 20mg by mouth daily Assessment/Pt Instructions Take medications as prescribed. You are being started on a blood thinner. You will need to take it for at least 3 months. Follow up with your PCP. Return with worsening shortness of breath, chest pain, bleeding, or if you feel like you are getting worse. Discharge Planning: <30 minutes discharge planning Discharge Instructions Discharge Diet: No Restrictions Activity as Tolerated: Yes Discharge Physical Examination Vital Signs Vital Signs Date Time Temp Pulse Resp B/P (MAP) Pulse Ox O2 Delivery O2 Flow Rate FiO2 12/27/20 12:55 37.1 12/27/20 10:46 93 Room Air 12/27/20 08:45 77 24 110/71 (84) 2.00 12/25/20 04:39 95 General Appearance: No Apparent Distress, Anxious, Obese Respiratory: Lungs Clear, Normal Breath Sounds, No Respiratory Distress Cardiovascular: Regular Rate, Rhythm, No Edema, No Murmur Gastrointestinal: Normal Bowel Sounds, Non Tender, Soft Extremity: Normal Inspection, Non Tender, No Pedal Edema Skin: Normal Color, Warm/Dry Neurologic/Psychiatric: Alert, Oriented x3, No Motor/Sensory Deficits Allergies: Coded Allergies: No Known Drug Allergies (Unverified , 07/14/20) Discharge Summary Date of Admission Dec 24, 2020 at 20:07 Date of Discharge Discharge Date: Dec 27, 2020 Discharge Time: 14:51 Admission Diagnosis Bilateral pulmonary emboli Discharge Diagnosis Bilateral pulmonary emboli Acute respiratory failure with hypoxia History of COVID-19 (1) Bilateral pulmonary embolism Status: Acute (2) Hypercoagulable state associated with COVID-19 Status: Acute (3) History of COVID-19 Status: Chronic (4) Acute respiratory failure with hypoxia Status: Acute (5) Obesity Status: Chronic Qualifiers: Qualified Codes: E66.09 - Other obesity due to excess calories; Z68.32 - Body mass index [BMI] 32.0-32.9, adult SERENITY WILSON MD Dec 27, 2020 14:57
[2020-12-27 16:23] VITALS: BP 100/53
== END 2020-12-27 18:25 | disposition home or self-care (01) | DRG 175 ==
LOC: EDUNIT# 15:22 → ER FS 15:24 → CSD 20:07 → 4TH 12-25 17:11
PROVIDERS: ADMIT Internal Medicine; ATTEND Internal Medicine
DX: I26.99 Other pulmonary embolism without acute cor pulmonale (principal); J96.01 Acute respiratory failure with hypoxia; D68.69 Other thrombophilia; U09.9 Post COVID-19 condition, unspecified; Z79.899 Other long term (current) drug therapy; E66.9 Obesity, unspecified; Z68.32 Body mass index [BMI] 32.0-32.9, adult
CPT/HCPCS: 36415; 71045; 71275; 80048; 80053; 81000; 82805; 83605; 84145; 85007; 85025; 85027; 85610; 85730; 87040; 87077; 87088; 94640; 94760; 94761; 96361; 96365; 96372

== ENCOUNTER → 2021-09-09 | Outpatient (CLI) | payer MEDICARE, OTHER ==
[~2021-09-09] MED LIST changes: +CATHETER FLUSH 10 ML SYR IVP PRN; +RIVA1TAB PO; +RIVA20TA PO
[2021-09-09 12:30] VITALS: BP 106/64
--- NOTE | 2021-09-09 18:04 | NUCLEAR STRESS TEST ---
TREADMILL NUCLEAR STRESS TEST Date of procedure: 09/09/2021. Primary care provider: Lyudmila Dao MD. Admitting physician: Jose Elias Worrell Jr., MD. INDICATION: Abnormal electrocardiogram. BASELINE ELECTROCARDIOGRAM: Sinus bradycardia at 51 bpm with left anterior hemiblock and inferior ST-T wave changes, consider ischemia. STRESS TEST PROCEDURE: The patient was exercised for a total of 10 minutes and 25 seconds of the standard Kurt protocol achieving a maximum MET level of 11.5. The resting heart rate was 51 bpm and the peak heart rate was 143 bpm, which represents 92% of the maximum predicted heart rate. The resting blood pressure was 115/65 mmHg and the peak blood pressure was 153/65 mmHg. This represents a normal heart rate and a normal blood pressure response to exercise. The test was stopped due to fatigue. There was no chest discomfort during the test. There were no arrhythmias during the test. There were no significant stress induced electrocardiogram changes. The patient exhibited excellent exercise capacity for age. NUCLEAR PROCEDURE: The patient was administered 10.2 mCi of intravenous technetium 99m Tetrofosmin at rest for the rest images. The patient was subsequently administered 27.7 mCi of intravenous technetium 99 M Tetrofosmin at peak stress for the stress images. Following an appropriate wait after each injection, imaging was obtained. The images were subsequently processed and reformatted in the usual views. Gated imaging was obtained. The image quality was adequate with a mild degree of gastrointestinal attenuation artifact. CT attenuation correction was used as a adjunct to standard imaging. Both the corrected and uncorrected images were reviewed for interpretation. NUCLEAR RESULTS: There was normal myocardial perfusion in all segments without evidence of infarction or ischemia. There was normal left ventricular chamber size with an end-diastolic volume of 52 mL and an end-systolic volume of 22 mL. There was no evidence of transient ischemic dilatation. The TID ratio was 1.08. There was normal wall motion in all segments with a calculated ejection fraction of 57%. IMPRESSION: 1. Normal heart rate and blood pressure response to exercise. 2. There was no chest discomfort, arrhythmias, or electrocardiogram changes during the test. 3. The patient exhibited excellent exercise capacity for age at 10 minutes and 25 seconds of the Kurt protocol. 4. There was normal myocardial perfusion in all segments without evidence of infarction or ischemia. 5. There was normal wall motion in all segments with a calculated ejection fraction is 57%. Certain portions of this document may have been dictated utilizing voice recognition technology. Inherent to this technology, typographical and grammatical errors may exist. As much as I am diligent to identify and correct these mistakes, some errors may remain in the document. JOSE ELIAS WORRELL JR, MD Sep 09, 2021 18:04
== END ==
LOC: CARD 10:01
PROVIDERS: ATTEND Internal Medicine Cardiovascular Disease
DX: R94.31 Abnormal electrocardiogram [ECG] [EKG] (principal)
CPT/HCPCS: 78452; 93017; 93306; A9502

== ENCOUNTER 2021-10-15 15:22 | Emergency (ER) | payer MEDICARE, OTHER ==
[~2021-10-15] VITALS: Ht 162.5 cm; Wt 69.3 kg
[~2021-10-15 15:22] MED LIST changes: -CATHETER FLUSH 10 ML SYR IVP PRN
--- NOTE | 2021-10-15 15:42 | ED Syncope ---
General Chief Complaint: Dizziness/Syncope Stated Complaint: SYNCOPAL EPISODE Source of Information: Patient Exam Limitations: No Limitations History of Present Illness Date Seen by Provider: Oct 15, 2021 Time Seen by Provider: 15:30 Initial Comments 66-year-old male presents to the emergency department today for syncopal episode. About 11:00 he got up from sleeping. He walked about 5 steps and had a syncopal episode. No prodromal symptoms to include chest pain, shortness of breath or anything else that would let him know that he was going to pass out. His rushed to his side. He woke up and then passed out once more. She feared he may have low blood sugar as he is type II diabetic and takes metformin. She gave him juice and he "came right to." He did lose control of his bladder during the event. He states he felt groggy for a few seconds after the event but then was back to normal. He feels fine now and is asymptomatic. 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 He has no known cardiac history. He denies any changes in his vision, headache, upper or lower extremity weakness numbness or tingling Allergies and Home Medications Allergies Coded Allergies: No Known Drug Allergies (Unverified , 07/14/20) Patient Home Medication List Home Medication List Reviewed: Yes Rivaroxaban (Xarelto Starter Pack) 1 Each Tab.ds.pk, 1 EACH PO UD Prescribed by: SERENITY WILSON on 12/27/20 1443 Rivaroxaban (Xarelto) 20 Mg Tablet, 20 MG PO DAILY Prescribed by: SERENITY WILSON on 12/27/20 1443 Review of Systems Constitutional: no symptoms reported EENTM: no symptoms reported Respiratory: no symptoms reported Cardiovascular: syncope Gastrointestinal: no symptoms reported Genitourinary: no symptoms reported Musculoskeletal: no symptoms reported Skin: no symptoms reported Psychiatric/Neurological: No Symptoms Reported Past Fvivxuj-Sztxdy-Ywlnkb Hx Patient Social History Tobacco Use?: Yes Tobacco type used: Cigars Use of E-Cig and/or Vaping dev: No Substance use?: No Alcohol Use?: Yes Alcohol Frequency: Rarely Immunizations Up To Date First/Initial COVID19 Vaccinat: NONE Second COVID19 Vaccination Jeronimo: NONE Third COVID19 Vaccination Date: NONE Seasonal Allergies Seasonal Allergies: No Past Medical History Surgery/Hospitalization HX: LT KNEE MENISCUS REPAIR Surgeries: Yes Orthopedic Respiratory: No Cardiac: No Neurological: No Genitourinary: No Gastrointestinal: No Musculoskeletal: No Endocrine: No HEENT: No Cancer: No Psychosocial: No Integumentary: No Blood Disorders: No Family Medical History No Pertinent Family Hx Physical Exam Vital Signs Vital Signs - First Documented 10/15/21 15:28 Temp 36.6 Pulse 63 Resp 16 B/P (MAP) 113/76 (88) Pulse Ox 99 O2 Delivery Room Air Capillary Refill : Height, Weight, BMI Height: '" Weight: lbs. oz. kg; 32.79 BMI Method: General Appearance: No Apparent Distress, WD/WN HEENT: PERRL/EOMI, TMs Normal, Normal ENT Inspection, Pharynx Normal Neck: Full Range of Motion, Normal Inspection, Non Tender, Supple Cardiovascular: Regular Rate, Rhythm, No Edema, No Gallop, No JVD, No Murmur, Normal Peripheral Pulses Respiratory: Chest Non Tender, Lungs Clear, Normal Breath Sounds, No Accessory Muscle Use, No Respiratory Distress Gastrointestinal: Normal Bowel Sounds, No Organomegaly, No Pulsatile Mass, Non Tender, Soft Back: Normal Inspection, No CVA Tenderness, No Vertebral Tenderness Extremities: Normal Capillary Refill, Normal Inspection, Normal Range of Motion, Non Tender, No Calf Tenderness Neurologic/Psychiatric: Alert, Oriented x3, No Motor/Sensory Deficits, Normal Mood/Affect, ergonomic specialist II-XII Norm as Tested Cranial Nerves: PERRL Coordination/Gait: Normal Finger to Nose, Normal Gait, Negative Romberg's Sign Motor/Sensory: No Motor Deficit, No Sensory Deficit, No Pronator Drift Skin: Normal Color, Warm/Dry Lymphatic: No Adenopathy Progress/Results/Core Measures Results/Orders Lab Results Laboratory Tests Test 10/15/21 15:39 Range/Units White Blood Count 8.3 4.3-11.0 10^3/uL Red Blood Count 4.75 4.30-5.52 10^6/uL Hemoglobin 14.4 13.3-17.7 g/dL Hematocrit 42 40-54 % Mean Corpuscular Volume 89 80-99 fL Mean Corpuscular Hemoglobin 30 25-34 pg Mean Corpuscular Hemoglobin Concent 34 32-36 g/dL Red Cell Distribution Width 13.8 10.0-14.5 % Platelet Count 283 130-400 10^3/uL Mean Platelet Volume 9.2 9.0-12.2 fL Neutrophils (%) (Auto) 75 42-75 % Lymphocytes (%) (Auto) 16 12-44 % Monocytes (%) (Auto) 7 0-12 % Eosinophils (%) (Auto) 2 0-10 % Basophils (%) (Auto) 0 0-10 % Neutrophils # (Auto) 6.2 1.8-7.8 X 10^3 Lymphocytes # (Auto) 1.3 1.0-4.0 X 10^3 Monocytes # (Auto) 0.6 0.0-1.0 X 10^3 Eosinophils # (Auto) 0.2 0.0-0.3 10^3/uL Basophils # (Auto) 0.0 0.0-0.1 10^3/uL Sodium Level 137 135-145 MMOL/L Potassium Level 4.7 3.6-5.0 MMOL/L Chloride Level 102 98-107 MMOL/L Carbon Dioxide Level 27 21-32 MMOL/L Anion Gap 8 5-14 MMOL/L Blood Urea Nitrogen 22 H 7-18 MG/DL Creatinine 1.11 0.60-1.30 MG/DL Estimat Glomerular Filtration Rate 73 BUN/Creatinine Ratio 20 Glucose Level 111 H 70-105 MG/DL Calcium Level 9.9 8.5-10.1 MG/DL Corrected Calcium 9.6 8.5-10.1 MG/DL Total Bilirubin 1.1 H 0.1-1.0 MG/DL Aspartate Amino Transf (AST/SGOT) 19 5-34 U/L Alanine Aminotransferase (ALT/SGPT) 15 0-55 U/L Alkaline Phosphatase 72 40-136 U/L Total Protein 6.6 6.4-8.2 GM/DL Albumin 4.4 3.2-4.5 GM/DL My Orders Orders - BETTY INFANTE DO Cbc With Automated Diff (10/15/21 15:35) Comprehensive Metabolic Panel (10/15/21 15:35) Ekg Tracing (10/15/21 15:35) Chest Pa/Lat (2 View) (10/15/21 15:35) Ct Head Wo (10/15/21 15:35) Vital Signs/I&O 10/15/21 10/15/21 10/15/21 15:28 15:45 15:46 Temp 36.6 Pulse 63 60 60 64 62 Resp 16 B/P (MAP) 113/76 (88) 105/56 (72) 105/56 (72) 111/64 (80) 101/59 (73) Pulse Ox 99 O2 Delivery Room Air Initial ECG Impression Date: Oct 15, 2021 Initial ECG Impression Time: 15:39 Comment Sinus bradycardia 59 bpm. Normal intervals. Slight left axis deviation. Left anterior fascicular block. T wave inversions in lead III and aVF. Diagnostic Imaging Diagonstic Imaging: Xray, CT Plain Films/CT/US/NM/MRI: chest, head Comments CXR: NAD [facility] [place], [place] NAME: CARMEN [facility] REC#: [id number] PT STATUS: REG ER : 1955 PHYSICIAN: BETTY INFANTE DO ADMIT DATE: 10/15/21/ER FS Signed Date of Exam:10/15/21 CT HEAD WO PROCEDURE: CT head without contrast. TECHNIQUE: Multiple contiguous axial images were obtained through the brain without the use of intravenous contrast. Auto Exposure Controls were utilized during the CT exam to meet ALARA standards for radiation dose reduction. INDICATION: Syncope, dizziness The ventricles are normal in size, shape and position. There are no masses or hemorrhages. There are no extra-axial fluid collections. IMPRESSION: Negative CT head Dictated by: Dictated on workstation # [id number] Dict: 10/15/21 1602 Trans: 10/15/21 1602 TCB [id number] Interpreted by: CAITLYN MENESES MD Electronically signed by: CAITLYN MENESES MD 10/15/21 1602 Departure Communication (Admissions) EKG reviewed T wave inversions in lead III and aVF. This does seem consistent with previous EKG findings based on recent stress test report. In fact the inferior ischemia changes were the reason he underwent the stress test in the first place. It is most likely that he was hypoglycemic during the event. His gave him juice and immediately came to. Blood sugar here is stable and he is asymptomatic. CT brain is negative as is his chest x-ray. Lab work is unremarkable. He is discharged home and recommended to follow-up with his [facility] doctor within 2 or 3 days. Impression Primary Impression: Syncope Qualified Codes: R55 - Syncope and collapse Disposition: 01 HOME, SELF-CARE Condition: Stable Departure-Patient Inst. Referrals: YVONNE ZAMORA MD (PCP/Family) Primary Care Physician Patient Instructions: Syncope (Fainting) (DC) Add. Discharge Instructions: You were seen in the emergency department today after passing out. I believe that it is most likely that your blood sugar was low during this event. Your CT scan is normal and her lab work-up is unremarkable. I recommend you follow-up with your primary doctor in 2 to 3 days. If you have repeat of these occurrences you need to be reevaluated in the emergency department immediately. All discharge instructions reviewed with patient and/or family. Voiced understanding. BETTY INFANTE DO Oct 15, 2021 15:42
[2021-10-15 15:45] VITALS: BP 105/56
[2021-10-15 15:46] VITALS: BP_SYST 101; BP_SYST 105; BP_SYST 111; BP_DIAS 56; BP_DIAS 59; BP_DIAS 64
[2021-10-15 15:48] LABS: BASOPHILS % (AUTO) 0 % (0-10); EOSINOPHILS # (AUTO) 0.2 10^3/uL (0.0-0.3); EOSINOPHILS % (AUTO) 2 % (0-10); HEMATOCRIT 42 % (40-54); HEMOGLOBIN 14.4 g/dL (13.3-17.7); LYMPHOCYTES # (AUTO) 1.3 X 10^3 (1.0-4.0); LYMPHOCYTES % (AUTO) 16 % (12-44); MEAN CORPUSCULAR HEMOGLOBIN 30 pg (25-34); MEAN CORPUSCULAR HGB CONC 34 g/dL (32-36); MEAN CORPUSCULAR VOLUME 89 fL (80-99); MEAN PLATELET VOLUME 9.2 fL (9.0-12.2); MONOCYTES # (AUTO) 0.6 X 10^3 (0.0-1.0); MONOCYTES % (AUTO) 7 % (0-12); NEUTROPHILS # (AUTO) 6.2 X 10^3 (1.8-7.8); NEUTROPHILS % (AUTO) 75 % (42-75); PLATELET COUNT 283 10^3/uL (130-400); WHITE BLOOD COUNT 8.3 10^3/uL (4.3-11.0)
--- NOTE | 2021-10-15 16:01 | Diagnostic Imaging Report ---
Indication: Syncope PA and lateral chest Heart size and pulmonary vascularity are normal. Lungs are clear. There are no effusions or pneumothoraces. IMPRESSION: No acute abnormalities in the chest Dictated by: Dictated on workstation # [id number]
--- NOTE | 2021-10-15 16:04 | Diagnostic Imaging Report ---
PROCEDURE: CT head without contrast. TECHNIQUE: Multiple contiguous axial images were obtained through the brain without the use of intravenous contrast. Auto Exposure Controls were utilized during the CT exam to meet ALARA standards for radiation dose reduction. INDICATION: Syncope, dizziness The ventricles are normal in size, shape and position. There are no masses or hemorrhages. There are no extra-axial fluid collections. IMPRESSION: Negative CT head Dictated by: Dictated on workstation # [id number]
[2021-10-15 16:12] LABS: ALBUMIN 4.4 GM/DL (3.2-4.5); BILIRUBIN,TOTAL 1.1 MG/DL (0.1-1.0); CALCIUM 9.9 MG/DL (8.5-10.1); CREATININE SERUM 1.11 MG/DL (0.60-1.30); POTASSIUM 4.7 MMOL/L (3.6-5.0); TOTAL PROTEIN 6.6 GM/DL (6.4-8.2)
[2021-10-15 16:24] VITALS: BP 103/59
== END 2021-10-15 16:32 | disposition home or self-care (01) ==
LOC: EDUNIT# 15:22 → ER FS 15:24
DX: R55 Syncope and collapse (principal); E11.9 Type 2 diabetes mellitus without complications; Z79.84 Long term (current) use of oral hypoglycemic drugs; Z28.310 Unvaccinated for COVID-19
CPT/HCPCS: 36415; 70450; 71046; 80053; 85025; 93005